=== PATIENT | male | born 1945 | race Caucasian/White ===

== ENCOUNTER 2018-10-27 02:19 | Outpatient (CLI) | payer MEDICARE, BC, SELFPAY ==
[2018-10-27 11:33] LABS: Cholesterol 223 mg/dL (50-200); HDL Cholesterol 37 mg/dL (40-60); LDL CHOLESTEROL 151 mg/dL (<100); Triglyceride 190 mg/dL (30-150)
== END 2018-10-27 02:39 ==
PROVIDERS: PCP Emergency Medicine; Visit Provider Emergency Medicine
DX: I10 Essential (primary) hypertension (principal)
CPT/HCPCS: 36415; 80061; 83721

== ENCOUNTER 2020-04-13 14:35 | Emergency (ER) | payer MEDICARE, BC, SELFPAY ==
[2020-04-13 14:39] VITALS: BP 175/82; PULSE 73; RESP 15; TEMP 37; O2SAT 96
--- NOTE | 2020-04-13 15:22 | ED.GENADUL_ITS ---
Discharge Plan Disposition Patient Disposition: HOME Condition: Stable Discharge Details Chief Complaint: Laceration Clinical Impression: Avulsion of skin of finger Primary Care Provider: Kenneth Houser ED Provider: Isabelle Guerrero Home Meds and New Rx's Prescriptions: Continued losartan-hydrochlorothiazide 100-25 mg tablet 1 tab PO DAILY Qty: 90 RF: 3 carbamide peroxide 6.5 % drops 5 drp OT BID Qty: 30 RF: 0 aspirin [Aspir-81] 81 MG tablet,delayed release (DR/EC) 81 mg PO DAILY RF: 0 meclizine 25 MG tablet 25 mg PO qid prn 30 Days Qty: 120 RF: 1 Flovent HFA 110 mcg/actuation HFA aerosol inhaler 220 mcg Inhalation BID Qty: 2 RF: 6 levalbuterol tartrate 45 mcg/actuation HFA aerosol inhaler 2 puff Inhalation Q4H PRN Qty: 2 RF: 12 Discharge Instructions Instructions: Skin Avulsion (ED) Additional Instructions: Keep wound clean and dry. Do not remove the Gelfoam. Let it fall off naturally. If outer dressing becomes wet or dirty, you can be covered Gelfoam with bandage or Band-Aid. Follow-up with your primary care doctor in 1 week. Return to the emergency department with any worsening or new concerning symptoms. Discharge Data Discharge Date/Time-TO BE ENTERED AT DEPARTURE: 04/13/20 15:32 Discharge Physician: Isabelle Guerrero Medical Decision Making 74-year-old male with a history of a 1 x 1 cm skin avulsion noted to the second right medial distal finger tip after cut with brand-new X-Acto knife just prior to arrival. Tetanus up-to-date. No indication for any repair as there is only skin avulsion. Wound irrigated well. Wound covered with Gelfoam and tube gauze. Patient instructed on proper wound care. Advised to follow up with the primary care doctor for re-evaluation. Usual and customary return precautions given prior to discharge. Medical Records Medical records reviewed: Yes I reviewed the patient's medical records. HPI General Mode of arrival: ambulatory . Date/Time Provider Initiated Documentation: 04/13/20 14:37 . Limitations to Documentation: no limitations . Information obtained by: patient . HPI Narrative: Patient is a 74-year-old male who presents with right second finger laceration sustained when cut with a brand-new X-Acto knife that he opened from the packaging. Tetanus up-to-date. Denies any other injuries. Related Data Home Medications Medication Instructions Recorded Confirmed aspirin [Aspir-81] 81 mg PO DAILY tab-cap 06/04/13 04/13/20 meclizine 25 mg PO qid prn 30 Days #120 06/12/18 04/13/20 tab-cap fluticasone propionate 110 220 mcg INHALATION BID #2 inhaler 01/01/20 04/13/20 mcg/actuation HFA aerosol inhaler levalbuterol tartrate 45 2 puff INHALATION Q4H PRN #2 01/01/20 04/13/20 mcg/actuation aerosol inhaler inhaler losartan 100 1 tab PO DAILY #90 tab-cap 04/01/20 04/13/20 mg-hydrochlorothiazide 25 mg tablet carbamide peroxide 6.5 % ear drops 5 drp OT BID #30 ml 04/04/20 04/13/20 Previous Rx's Medication Instructions Recorded meclizine 25 mg PO qid prn 30 Days #120 06/12/18 tab-cap fluticasone propionate 110 220 mcg INHALATION BID #2 inhaler 01/01/20 mcg/actuation HFA aerosol inhaler levalbuterol tartrate 45 2 puff INHALATION Q4H PRN #2 01/01/20 mcg/actuation aerosol inhaler inhaler losartan 100 1 tab PO DAILY #90 tab-cap 04/01/20 mg-hydrochlorothiazide 25 mg tablet carbamide peroxide 6.5 % ear drops 5 drp OT BID #30 ml 04/04/20 Allergies Allergy/AdvReac Type Severity Reaction Status Date / Time amlodipine AdvReac Intermediate palpitation Verified 04/13/20 14:42 s budesonide [From Symbicort] AdvReac Intermediate anxiety Verified 04/13/20 14:42 hypertension doxazosin AdvReac Intermediate tachycardia Verified 04/13/20 14:42 formoterol fumarate AdvReac Intermediate anxiety Verified 04/13/20 14:42 [From Symbicort] hypertension ANIMAL DANDER Allergy Unknown Uncoded 04/13/20 14:42 DUST Allergy Unknown Uncoded 04/13/20 14:42 POLLEN EXTRACTS Allergy Unknown Uncoded 04/13/20 14:42 General Stated Complaint: Laceration JAYE: 4 Review of Systems All systems reviewed & are unremarkable except as noted in HPI and below PFSH Social History Smoking/Tobacco Use Status: Never Alcohol Intake: former Drug use: Never Substance use type: does not use Do you feel safe at home: Yes Do you feel safe in your relationship?: Yes Exam Const General: cooperative, healthy appearing and no acute distress HENMT Head: normal to inspection Mouth: oral mucosae normal Eyes General: appearance normal, both eyes and all related structures Neck Neck: normal visual inspection Resp Effort & Inspection: normal respiratory effort and able to speak in complete sentences Cardio Rate: regular rate Skin General skin exam: no rashes or lesions noted Neuro General: patient alert, patient awake and patient oriented x3 Motor: muscle tone normal throughout Extrem Hand/finger images: 1. 1x1cm skin avulsion noted to distal medial fingertip. Minimal active oozing controlled with pressure. Psych Appearance: grossly normal Affect: normal affect Course Vital Signs Vital signs: Vital Signs Temperature 98.6 F 04/13/20 14:39 Pulse 73 04/13/20 14:39 Respiratory Rate 15 04/13/20 14:39 Blood Pressure 175/82 H 04/13/20 14:39 Pulse Oximetry 96 04/13/20 14:39 Temperature 98.6 F 04/13/20 14:39 Temperature Source Temporal Artery Scan 04/13/20 14:39 Pulse 73 04/13/20 14:39 Respiratory Rate 15 04/13/20 14:39 Respiratory Effort Non-Labored 04/13/20 14:41 Blood Pressure 175/82 H 04/13/20 14:39 Blood Pressure Position Sitting 04/13/20 14:39 Pulse Oximetry 96 04/13/20 14:39 Oxygen Delivery Method Room Air 04/13/20 14:39 Oxygen Flow Rate 0 04/13/20 14:39 Pain Level 2 04/13/20 14:39
[2020-04-13 15:30] VITALS: BP 175/82; PULSE 73; RESP 15; TEMP 37; O2SAT 96
[2020-04-13] MEDS: Gelatin SPONGE 12-7 MM PKT 1 EACH TP (15:30)
== END 2020-04-13 15:32 | disposition home or self-care (01) ==
LOC: ER 15:31
PROVIDERS: Emergency Provider Physician Assistant; PCP Emergency Medicine
DX: S61.210A Laceration without foreign body of right index finger without damage to nail, initial encounter (principal); W26.0XXA Contact with knife, initial encounter
CPT/HCPCS: 99282

== ENCOUNTER 2022-05-05 02:36 | Outpatient (CLI) | payer MEDICARE, BC, SELFPAY ==
[2022-05-05 11:23] LABS: ALT 31 U/L (16-63); AST 23 U/L (15-37); Albumin 4.2 g/dL (3.4-5.0); Alkaline Phosphatase 76 U/L (46-116); Anion Gap 8.8 mmol/L (3-11); BUN 23 mg/dL (7-18); CO2 29.2 mmol/L (21.0-32.0); CREATININE 1.4 mg/dL (0.70-1.30); Calcium 9.1 mg/dL (8.5-10.1); Calculated LDL 171 mg/dL (<100); Chloride 101 mmol/L (98-107); Cholesterol 243 mg/dL (<200); Estimated GFR 49.54 (mL/min/1.73m2); Glucose 93 mg/dL (74-106); HDL Cholesterol 40 mg/dL (40-60); Potassium 4.4 mmol/L (3.5-5.1); Sodium 139 mmol/L (136-145); Total Protein 7.8 g/dL (6.4-8.2); Triglyceride 162 mg/dL (<150)
== END 2022-05-05 02:37 | disposition home or self-care (01) ==
LOC: LBO 02:37
PROVIDERS: PCP Nurse Practitioner Family; Visit Provider Nurse Practitioner Family
DX: I10 Essential (primary) hypertension (principal)
CPT/HCPCS: 36415; 80053; 80061

== ENCOUNTER 2022-10-26 04:01 | Outpatient (CLI) | payer MEDICARE, BC, SELFPAY ==
[2022-10-26 13:03] LABS: CREATININE 1.4 mg/dL (0.70-1.30); Estimated GFR 52.41 (mL/min/1.73m2); Potassium 4.7 mmol/L (3.5-5.1)
== END 2022-10-26 04:02 | disposition home or self-care (01) ==
LOC: LOS 04:01
PROVIDERS: PCP Nurse Practitioner Family; Visit Provider Nurse Practitioner Family
DX: I10 Essential (primary) hypertension (principal)
CPT/HCPCS: 36415; 82565; 84132

== ENCOUNTER → 2023-09-01 08:06 | Outpatient (BNVA) | payer MEDICARE, BC, SELFPAY | PROVIDERS: PCP Nurse Practitioner Family; Referring Provider Nurse Practitioner Family; Visit Provider Physician Assistant Surgical | DX: J45.20 Mild intermittent asthma, uncomplicated (principal); I10 Essential (primary) hypertension | CPT/HCPCS: 99205 ==

== ENCOUNTER → 2023-12-01 08:48 | Outpatient (BNVA) | payer MEDICARE, BC, SELFPAY | PROVIDERS: PCP Nurse Practitioner Family; Referring Provider Nurse Practitioner Family; Visit Provider Student in an Organized Health Care Education/Training Program | DX: J45.20 Mild intermittent asthma, uncomplicated (principal) | CPT/HCPCS: 99214 ==

== ENCOUNTER 2023-12-13 03:26 | Outpatient (CLI) | payer MEDICARE, BC, SELFPAY ==
[2023-12-13 12:55] LABS: CREATININE 1.5 mg/dL (0.70-1.30); Calculated LDL 131 mg/dL (<100); Cholesterol 203 mg/dL (<200); Estimated GFR 47.95 (mL/min/1.73m2); HDL Cholesterol 37 mg/dL (40-60); Potassium 3.7 mmol/L (3.5-5.1); Triglyceride 178 mg/dL (<150)
== END 2023-12-13 03:27 | disposition home or self-care (01) ==
LOC: LOS 03:26
PROVIDERS: PCP Nurse Practitioner Family; Visit Provider Nurse Practitioner Family
DX: I10 Essential (primary) hypertension (principal); Z13.6 Encounter for screening for cardiovascular disorders
CPT/HCPCS: 36415; 80061; 82565; 84132

== ENCOUNTER 2023-12-20 04:41 | Outpatient (CLI) | payer MEDICARE, BC, SELFPAY ==
[2023-12-20] MEDS: Methacholine 100 MG VIAL IH (11:58)
[2023-12-20] MEDS: Albuterol HFA 18 GM 200 PUFF INH IH (11:58)
[2023-12-20] MEDS: Inhaler, Assist Device 1 EACH MC (11:59)
--- NOTE | 2023-12-22 14:16 | W.PFT ---
Date of service: 12/20/23 Time of Service: 10:01 Pulmonary Function Test Result Indications: Dyspnea Interpretation Spirometry: There is no airflow limitation. No bronchodilator response. Lung Volumes: There is air trapping and hyperinflation Diffusion Capacity: Normal diffusion Airway Pressure: Normal airways resistance Impression There is air trapping present which may be indicative of asthma or emphysema Clinical Correlation therefore is recommended.
== END 2023-12-20 04:42 | disposition home or self-care (01) ==
LOC: RT 04:41
PROVIDERS: PCP Nurse Practitioner Family; Visit Provider Physician Assistant Surgical
DX: R06.00 Dyspnea, unspecified (principal); R94.2 Abnormal results of pulmonary function studies
CPT/HCPCS: 94060; 94070; 94726; 94729; 94010; J7674

== ENCOUNTER → 2024-06-05 08:17 | Outpatient (BNVA) | payer MEDICARE, BC, SELFPAY | PROVIDERS: PCP Nurse Practitioner Family; Referring Provider Nurse Practitioner Family; Visit Provider Internal Medicine Critical Care Medicine | DX: J45.20 Mild intermittent asthma, uncomplicated (principal) | CPT/HCPCS: 99214 ==

== ENCOUNTER → 2024-09-04 09:33 | Outpatient (BNVA) | payer MEDICARE, BC, SELFPAY | PROVIDERS: PCP Nurse Practitioner Family; Referring Provider Nurse Practitioner Family; Visit Provider Physician Assistant Surgical | DX: J45.20 Mild intermittent asthma, uncomplicated (principal) | CPT/HCPCS: 99214 ==

== ENCOUNTER 2024-12-06 00:39 | Emergency (ER) | payer MEDICARE, BC, SELFPAY ==
[2024-12-06] VITALS (28 sets, daily range): BP systolic 170–258; BP diastolic 82–99; PULSE 52–64; RESP 8–19; TEMP 36; O2SAT 96–100
--- NOTE | 2024-12-06 00:30 | RT.EKG_ITS ---
APPROVED REPORT Exam: Resting ECG Reason for Exam: high bp Patient Location: E HR:57 bpm ECG Measurements Heart Rate 57 AXIS OH 210 P 48 QRSd 93 QRS -5 QT 401 T 45 QTc 390 Conclusion Sinus bradycardia...rate< 60 Normal [place]/Intervals Normal ST segments.
--- NOTE | 2024-12-06 00:43 | ED.GENADUL_ITS ---
Discharge Plan Disposition Patient Disposition: Home Condition: Good Discharge Details Clinical Impression: Nausea, Elevated blood pressure reading with diagnosis of hypertension Primary Care Provider: Pablito Fragoso ED Provider: Willy Williamson [place] Meds and New Rx's Prescriptions: Continued levalbuterol tartrate 45 mcg/actuation HFA aerosol inhaler 2 puff Inhalation Q4H PRN Qty: 2 3RF losartan 100 mg tablet 100 mg PO DAILY Qty: 90 3RF hydrochlorothiazide 25 mg tablet 25 mg PO DAILY metoprolol succinate 25 mg tablet extended release 24 hr 25 mg PO DAILY No Action Airsupra 90-80 mcg/actuation HFA aerosol inhaler 2 inh inhalation ONCE Qty: 10.7 12RF Rx Instructions: as a single dose; may repeat up to 6 doses per day (12 inhalations) Discharge Instructions Additional Instructions: You were seen for nausea and elevated blood pressure. Your exam, EKG, CXR and labs are reassuring. Your blood pressure did come down but is still high. You should discuss both blood pressure medications as well as asthma maintenance inhalers with your PCP today at your appointment. Return to ED for any severe headache, neurological change, chest pain, shortness of breath or other concerns. Referrals: Pablito Fragoso, MACHINE [employer]CH[employer]IC [Primary Care Provider] - HPI General Mode of arrival: ambulatory . Date/Time Provider Initiated Documentation: 12/06/24 00:43 . Limitations to Documentation: no limitations . Information obtained by: patient, RN notes reviewed and old records reviewed . HPI Narrative: Patient presents to ED after waking up feeling nauseated and anxious. Denies having any type of pain. Denies any type of chest discomfort. Has been needing to use his rescue inhaler at least once a day over the last few days but denies fever or URI type symptoms. Had seen his primary care at the end of the month in October. His maintenance inhaler was placed on hold due to concern that the budesonide may be causing increased blood pressure. Blood pressure tonight after waking up was quite elevated. Denies any acute neurologic change, shortness of breath. Currently on hydrochlorothiazide, losartan and metoprolol for blood pressure. Related Data Home Medications ?Medication ?Instructions ?Recorded ?Confirmed losartan 100 mg tablet 100 mg PO DAILY #90 tabs 12/16/23 12/06/24 levalbuterol tartrate 45 2 puff inhalation Q4H PRN ##2 08/06/24 02/06/25 mcg/actuation aerosol inhaler albuterol 90 mcg-budesonide 80 2 inh inhalation ONCE #10.7 grams 10/03/24 12/06/24 mcg/actuation HFA aerosol inhaler (Airsupra) hydrochlorothiazide 25 mg tablet 25 mg PO DAILY 12/06/24 12/06/24 metoprolol succinate 25 mg 25 mg PO DAILY 12/06/24 12/06/24 tablet,extended release 24 hr Previous Rx's ?Medication ?Instructions ?Recorded losartan 100 mg tablet 100 mg PO DAILY #90 tabs 12/16/23 levalbuterol tartrate 45 2 puff inhalation Q4H PRN ##2 06/05/24 mcg/actuation aerosol inhaler albuterol 90 mcg-budesonide 80 2 inh inhalation ONCE #10.7 grams 10/03/24 mcg/actuation HFA aerosol inhaler (Airsupra) Allergies Allergy/AdvReac Type Severity Reaction Status Date / Time budesonide (From Symbicort) Allergy Intermediate anxiety Verified 12/06/24 00:52 hypertension doxazosin Allergy Intermediate tachycardia Verified 12/06/24 00:52 formoterol fumarate (From AdvReac Intermediate anxiety Verified 12/06/24 00:52 Symbicort) hypertension ANIMAL DANDER Allergy Unknown chest Uncoded 12/06/24 00:52 tightness DUST Allergy Unknown chest Uncoded 12/06/24 00:52 tightness maple trees Allergy Unknown chest Uncoded 12/06/24 00:52 tightness POLLEN EXTRACTS Allergy Unknown chest Uncoded 12/06/24 00:52 tightness amlodipine AdvReac Intermediate heart Uncoded 12/06/24 00:52 pounding General JAYE: 4 Review of Systems Narrative: Per HPI Exam Narrative Exam Narrative: Const: WDWN male in NAD. VS per triage. HEENT: NC/AT. Normal facial exam. Neck: Supple. Trachea midline. Lungs: Normal respiratory effort. Lungs are clear. Cor: RRR without murmur. Good radial pulses. GI: Soft/ND/NT. Neuro: A+O x 3. Normal speech, mentation, gait. Cranial nerves II - XII grossly intact. No gross motor or sensory deficit. Ext: No C/C/E. Medical Decision Making Patient presenting to ED with elevated blood pressure after waking up with nausea and anxiety. EKG obtained on arrival is sinus bradycardia with normal ST segments, interval, axis. Blood pressure is quite elevated but he is exhibiting no evidence of hypertensive urgency or emergency. No URI type symptoms but increase use of his rescue inhaler. May be related to discontinuing his maintenance inhaler but will obtain chest x-ray. No recent laboratory studies and no chest pain or pressure but is elderly and has nausea with some anxiety. Reasonable to check a set of labs as well as delta troponin and monitor blood pressure while here. Blood pressure did come down though still elevated, last reading 173/97. He is feeling better with no nausea and no new symptoms. Chest x-ray per my read with no acute cardiopulmonary process. Laboratory studies with no significant abnormalities. Delta troponin is flat. Patient has his annual wellness visit with PCP for today. I have suggested that he discuss both blood pressure control and potential changes in medications as well as finding an asthma maintenance inhaler so that he is not relying upon his rescue inhaler. Questions were answered. Return precautions were provided. Discharged home in good condition. Medical Records Medical records reviewed: Yes I reviewed the patient's medical records. Medical records narrative: PCP notes Imaging Data Radiologic Study: Attestation: I personally reviewed and interpreted this imaging study as follows: Imaging: X-Ray My impression: CXR without acute process Lab Data Lab results reviewed: Yes I reviewed the patient's lab results. Lab results narrative: see MDM ECG Data Attestation: I personally reviewed and interpreted this ECG (s) as follows: Prior ECG tracings: not available for review Interpretation: see MDM/EKG [facility] All Active Problems (Updated 12/06/24 @ 03:10 by Willy Williamson MD) Elevated blood pressure reading with diagnosis of hypertension (Acute) Nausea (Acute) Sensorineural hearing loss (Acute) Bilateral tinnitus (Acute) Benign paroxysmal positional vertigo (Acute 06/07/18) Medical History Asthma Essential hypertension (12/11/13) Hyperlipidemia Stage III chronic kidney disease Surgical History History of nephrectomy, 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 Family History Mother Diabetes Essential hypertension Heart disease Hyperlipidemia Father Essential hypertension Asbestos exposure Brother Essential hypertension Personal history of malignant neoplasm Skin Grandfather Heart disease Stroke Grandfather No problems noted. Grandmother No problems noted. Grandmother No problems noted. Brother Essential hypertension Hyperlipidemia Brother No problems noted. Brother Diabetes Essential hypertension Son No problems noted. Son No problems noted. Son No problems noted. Daughter No problems noted. Daughter Asthma Social History Smoking/Tobacco Use Status: Former Tobacco Use tobacco type: smokeless tobacco Tobacco: How many years used: 50 Smokeless tobacco user: chewing tobacco Second Hand Exposure: Yes Smoking risk assessment performed?: Yes Alcohol Intake: former Drug use: Never Substance use type: does not use Caregiver/Support person: No Household members: spouse Housing: house Pets and animals: Yes Pets and animals: cat(s) and dog(s) Sexually active: Yes Do you think of yourself as: straight/heterosexual Current gender identity: male What is your relationship status?: How often do you talk on the phone with friends or family?: once per week How often do you get together with friends or relatives?: once per week How often do you attend gnosticism or muslim services?: decline to answer Do you belong to any clubs or organized social groups?: no Panel score (0-1 are the most socially isolated patients): 1 Desirae/Jain: No preference Special desirae needs: No Seatbelt use: sometimes Drive intox or ride w/intox 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
--- OUTSIDE RECORDS SUMMARY | 2024-12-06 00:44 | XMS_ITS | Encounter Summary ---
Author Organization [facility] [place] [address] Care Team Providers Care Powerbuilder Name Role Phone MikKenneth martin Primary Care Provider Reason for Visit * Reason Comments Post Op Encounter Details Date Type Department Care Team (Late st Contact Info) Description 06/24/2020 12:30 PM EDT Office [place] [address] Gabriel Anderson MD Epiretinal membrane (ERM) of left eye s/p PPV-MP 06/16/20 Social History Tobacco Use Types Packs/Day Years Used Date Smoking Tobacco: Never Smokeless Tobacco: Former Chew Alcohol Use Standard Drinks/Week Comments Not Currently 0 (1 standard drink = 0.6 oz pur e alcohol) Sex and Gender Information Value Date Recorded Sex Assigned at Not on file Gender Identity Not on file Sexual Orientation Not on file documented as of this encounter Patient Instructions * Patient Instructions* Gabriel Anderson MD - 06/24/2020 12:30 PM EDT Images from the original note were not included. Drop Name: Cap Color: Dose: 1 Drop Eye: Prednisolone Acetate 1% [place] or White 2 times per day Until bottle empties (shake bottle before using) Operated eye Vigamox (Moxifloxacin) Hernandez STOP Operated eye Ointment Small tube 2-3x daily as needed Operated eye Make sure to wait 3-5 minutes between eye drops. POSITIONING: No special positioning WARNING SYMPTOMS People frequently feel mild-moderate discomfort that improves within a few days. Eyelid edema and redness are also common. However, if you feel new pain, light sensitivity and vision loss please call the [facility] telephone center ([phone]) immediately and speak to the insurance agency sales manager superintendent of generation. PAIN May use over the counter pain medications as needed (Tylenol 1000mg- up to 3 times daily) alternating with ibuprofen (600mg up to 3 times per day) EYE SHIELD: Not needed OTHERS Make sure you wash your hands prior to touching your eye (i.e. Prior to applying your eyedrops) Avoid lifting very heavy weights for 1 month (i.e. Not more than 20 lbs) FLIGHTS: No restrictions documented in this encounter Progress Notes * Gabriel Anderson MD - 06/24/2020 12:30 PM EDT ASSESSMENT/PLAN: Visual Acuity Visual Acuity (Snellen - Linear) Right Left Dist cc 20/25 -2 20/40 +2 Dist ph cc NI Near cc 20/20 20/200 Correction: Glasses Tonometry Tonometry (Tonopen, 1:13 PM) Right Left Pressure 14 19 1. Epiretinal membrane (ERM) of left eye s/p PPV-MP 06/16/20 POW1. Doing well. The IOP is good, the retina attached.The warning symptoms of RD were discussed. Eye drops: PF BID until the bottle empties. Stop Vigamox Follow up in 5-6 weeks HCK for DFE, OCT OU Gabriel Anderson MD documented in this encounter Plan of Treatment Not on file documented as of this encounter Visit Diagnoses Diagnosis Epiretinal membrane (ERM) of left eye s/p PPV-MP 06/16/20 documented in this encounter Care Teams Powerbuilder Relationship Specialty Start Date End Date Kenneth Houser DO [address] [place] [address] PCP - General Family Medicine 04/14/17 documented as of this encounter
--- OUTSIDE RECORDS SUMMARY | 2024-12-06 00:44 | XMS_ITS | Encounter Summary ---
[place] [address] Care Team Providers Care Client Care Coordinator Name Role Phone Mik, Kenneth SMITH Primary Care Provider [phone] Reason for Visit * Auth/Cert Specialty Diagnoses / Procedures Referred By Isis au Referred To Contact Diagnoses epiretinal membrane, left eye Procedures PRO VITRECTOMY PARS PLANA REMOVE PRERETINAL MEMBRANE VITRECTOMY, W/ MEMBRANE STRIPPING (WRVU 16.33) Referral ID Status Reason Start Date Expiration Date Visits Re quested Visits Authorized [id number] 1 1 Encounter Details Date Type Department Care Team (Latest Contact Info) Description 06/16/2020 8:27 AM EDT - 06/16/2020 11:48 AM EDT Hospital Encounter [place] [address] Gabriel Anderson MD Discharge Disposition: Home Social History Tobacco Use Types Packs/Day Years Used Date Smoking Tobacco: Never Smokeless Tobacco: Former Chew Alcohol Use Standard Drinks/Week Comments Not Currently 0 (1 standard drink = 0.6 oz pur e alcohol) Sex and Gender Information Value Date Recorded Sex Assigned at Not on file Gender Identity Not on file Sexual Orientation Not on file documented as of this encounter Last Filed Vital Signs Vital Sign Reading Time Taken Comments Blood Pressure 126/60 06/16/2020 11:30 AM EDT Pulse 70 06/16/2020 8:52 AM EDT Temperature 36.5 ??C (97.7 ??F) 06/16/2020 10:58 AM E DT Respiratory Rate 16 06/16/2020 11:30 AM EDT Oxygen Saturation 97% 06/16/2020 11:30 AM EDT Inhaled Oxygen Concentration - - Weight 76.2 kg (168 lb) 06/16/2020 8:52 AM EDT Height 172.7 cm (5' 8) 06/16/2020 8:52 AM EDT Body Mass Index 25.54 06/16/2020 8:52 AM EDT documented in this encounter Discharge Instructions * Patient Instructions* Gabriel Anderson MD - 06/16/2020 9:22 AM EDT DROPS: Operated eye: Please keep the patch on the operated eye and do NOT use any eye drops. You will start them right after your post-op day 1 exam. Non- operated eye: Please continue all the eye drops (if any) as previously instructed POSITIONING: Please keep a face down position for ~50-55 mins/hour while awake. It's ok to take a ~5- 10 minute break every hour. Please sleep on your side with the left or right cheek touching the pillow WARNING SYMPTOMS People frequently feel mild-moderate discomfort that improves within a few days. Eyelid edema and redness are also common for a few weeks. However, if you feel new pain, tenderness, light sensitivity and vision loss please call the [facility] telephone center ([phone]) immediately and speak to the regulatory compliance specialist secondary school teacher. PAIN May use over the counter pain medications as needed (Tylenol 1000mg- up to 3 times daily) alternating with ibuprofen (600mg up to 3 times per day) EYE SHIELD: Keep eye shield on the eye overnight. OTHERS Avoid lifting heavy weights for 1 week (i.e. Not more than 5-10 lbs) Avoid high impact activities (e.g. Weight lifting, running) for at least 1 week Avoid straining- valsalva, retching, vomiting, coughing as much as possible FLIGHTS: Do NOT take any flights until you discuss it with your doctor. There's severe risk for the eye if you're in areas of high altitude (flight, very tall mountains etc) documented in this encounter Medications at Time of Discharge Medication Sig Dispensed Refills Start Date End Date ketoconazole (NIZORAL) 2 % ShampooIndications:Seborr heic dermatitis Apply to affected area on the face daily as needed, wash off after 5-10 minutes 120 mL 3 11/22/2017 FLOVENT HFA 110 mcg/actuation HFA Aerosol Inhaler 04/27/2017 levalbuterol (XOPENEX HFA) 45 mcg/actuation HFA Aerosol Inhaler 04/27/2017 aspirin 81 mg Tablet, Delayed Release (E.C.) Take 81 mg by mouth daily. losartan-hydrochlorothiaz lex (HYZAAR) 100-25 mg per tablet 12/21/2006 documented as of this encounter Progress Notes * Meghann Tran RN - 06/16/2020 11:47 AM EDT Patient alert and oriented, vital signs stable. Reviewed discharge instructions; patient and verbalized understanding. Copy of instruction sheet with contact numbers for questions/concerns. Painassessment documented. Patient escorted out of department via wheelchair with MILK RECEIVER. documented in this encounter H&P Notes * Gabriel Anderson MD - 06/16/2020 9:21 AM EDT Patient Name: Everett Johnson Patient Age: 75 y.o. Birthdate: 1945 Admit date: 06/16/2020 Attending Physician: Gabriel Anderson MD History and Physical Reviewed. No changes noted. The heart exam: RR, lung exam CTAB Ok to proceed with eye surgery as planned. Gabriel Anderson MD, PhD Physical Education Teacher of Ophthalmology Diseases of the Retina and Vitreous documented in this encounter Nursing Notes * Matilde Ward RN - 06/16/2020 10:46 AM EDT 20% SF6 gas left eye Card in black bag Gas bracelet applied to wrist documented in this encounter Miscellaneous Notes * Op Note - Gabriel Anderson MD - 06/16/2020 9:22 AM EDT [facility] [place] Patient Name: Everett Johnson : [id number] MR#: [id number] Case Date: 06/16/2020 Surgeon: Surgeon(s) and Role: * Gabriel Anderson MD - Primary Preoperative diagnosis: Epiretinal membrane, left eye Postoperative diagnosis: Epiretinal membrane, left eye Procedure(s) (LRB): VITRECTOMY, W/ MEMBRANE STRIPPING (WRVU 16.33) (Left) Anesthesia: MAC Estimated Blood Loss: <1ml Specimens removed during surgery: None Drains: * No LDAs found * Surgical Closure: Primary Closure - skin incision is completely closed without any wires, gladys, drains or other devices Disposition: aroused from sedation, and taken to the recovery room in a stable condition Condition: doing well without problems (Please see the Surgical Encounter Summary for any Implant and Specimen details pertinent to this patient.) HPI/Surgical Indications: Epiretinal membrane, left eye Procedure Description: Everett Johnson is a 75 y.o. male with blurred vision and metamorphopsia in the left eye due to severe epiretinal membrane and a decision was made to proceed with vitrectomy to improve the quality of the vision. The patient was brought [place] [facility] [place] a time-out was done to confirm correct eye, correct patient, and correct procedure.The patient was sedated and peribulbar anesthesia was given using 50:50 of 4% lidocaine and 0.75% marcaine. The appropriate eye was prepped and draped in the normal sterile fashion for intraocular surgery and a wire lid speculum was used throughout the case to retract the eyelids. Using the Mauro 25-gauge vitrectomy system, trocars were placed in the inferotemporal, superotemporal and superonasal quadrants approximately 4mm from the limbus. An infusion cannula was placed in the inferotemporal quadrant and its position was confirmed by direct visualization with the light pipebefore it was turned on. 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 Moreover the epiretinalmembrane was severe and was causing tractional retinal detachment. A 360 core vitrectomy was performed, the posterior vitreous was already detached and the vitreous was shaved out to the base as safely as possible. The epiretinal membrane was stained negatively withICG. Fluid- fluid exchange was performed to remove the ICG from the vitreous cavity. The epiretinalmembrane as well as parts of the inner limiting membrane were removed using ILM forceps. Attention was placed to the periphery and scleral depressed exam did not reveal any retinal breaks. Given the traction on the macula a decision was made to use SF6 20% in order to expedite the recovery. Each of the trocars was removed sequentially, the sclerotomies were closed with 8-0 vicryl suture and the eye was left adequately pressurized, air and watertight. Subconjunctival injection of cefazolin (100mg/0.3ml) and dexamethasone (2mg/0.5ml) as well as a peribulbar injection of marcaine 0.75% we re given. A drop of vigamox and antibiotic ointment were placed in the eye followed by a patch and shield. The patient was awoken from sedation, positioned appropriately and brought to the recovery room in stable condition.They have follow up in the retina clinic in 1 day. Infection Bundle used? No Attestation: Case Date: 06/16/2020 I performed this procedure without the involvement of a resident. Gabriel Anderson MD 06/17/2020 documented in this encounter Plan of Treatment Not on file documented as of this encounter Procedures Procedure Name Priority Date/Time Associated Diagnosis Comments Vitrectomy Pars Plana Remove Preretinal Membrane (70906) 06/16/2020 9:39 AM EDT Epiretinal membrane (ERM) of left eye documented in this encounter Visit Diagnoses Not on filedocumented in this encounter Administered Medications Inactive Administered Medications - up to 3 most recent administrations Medication Order MAR Action Action Date Dose Rate Site acetaminophen (Tylenol) tablet 1,000 mg 1,000 mg, Oral, EVERY 6 HOURS PRN, Starting on Tue06/16/20 at 1100, Until Tue06/16/20 at 1348, Pain, for MODERATE pain (4-6), Should be used concomitantly if other analgesics are ordered. Do not exceed 4,000 mg in 24 hours, Routine Given 06/16/2020 11:38 AM EDT 1,000 mg atropine 1 % ophthalmic solution 1 drop 1 drop, Left Eye, EVERY 5 MIN, 3 doses, First dose on Tue06/16/20 at 0915, Last dose on Tue06/16/20 at 0925, Day of Surgery (Day of Procedure), Routine Given 06/16/2020 9:26 AM EDT 1 drop Given 06/16/2020 9:16 AM EDT 1 drop Given 06/16/2020 9:05 AM EDT 1 drop Le ft Eye lactated ringers infusion 1,000 mL, at 100 mL/hr, Intravenous, CONTINUOUS, Starting on Tue06/16/20 at 0915, Until Tue06/16/20 at 1146, Day of Surgery (Day of Procedure) New Bag 06/16/2020 9:17 AM EDT 1,000 mLs 100 mL/hr moxifloxacin (VIGAMOX) 0.5 % ophthalmic solution 1 drop 1 drop, Left Eye, EVERY 5 MIN, 3 doses, First dose on Tue06/16/20 at 0915, Last dose on Tue06/16/20 at 0925, Day of Surgery (Day of Procedure), Routine Given 06/16/2020 9:27 AM EDT 1 drop Given 06/16/2020 9:16 AM EDT 1 drop Given 06/16/2020 9:05 AM EDT 1 drop PHENYLephrine (MYDFRIN) 2.5 % ophthalmic solution 1 drop 1 drop, Left Eye, EVERY 5 MIN, 3 doses, First dose on Tue06/16/20 at 0915, Last dose on Tue06/16/20 at 0925, Day of Surgery (Day of Procedure), Routine Given 06/16/2020 9:27 AM EDT 1 drop Given 06/16/2020 9:16 AM EDT 1 drop Given 06/16/2020 9:05 AM EDT 1 drop prednisoLONE acetate (PRED FORTE) 1 % ophthalmic suspension 1 drop 1 drop, Left Eye, ONCE, 1 dose, On Tue06/16/20 at 0915, Day of Surgery (Day of Procedure), Routine Given 06/16/2020 9:05 AM EDT 1 drop documented in this encounter Active and Recently Administered Medications Times are shown in EDT. Scheduled Medication Order 06/14/2020 06/15/2020 06/16/2020 atropine 1 % ophthalmic solution 1 drop (COMPLETED) 1 drop, Left Eye, EVERY 5 MIN, 3 doses, First dose on Tue06/16/20 at 0915, Last dose on Tue06/16/20 at 0925, Day of Surgery (Day of Procedure), Routine 09 (Given - Provid er: Shoshana Molina RN)0916 (Given - Provider: Shoshana Molina RN)09 (Not Given - Provider: Shoshana Molina RN - Reason: See comment - Comment: not given-see three other doses)0926 (Given - Provider: Shoshana Molina RN) moxifloxacin (VIGAMOX) 0.5 % ophthalmic solution 1 drop (COMPLETED) 1 drop, Left Eye, EVERY 5 MIN, 3 doses, First dose on Tue06/16/20 at 0915, Last dose on Tue06/16/20 at 0925, Day of Surgery (Day of Procedure), Routine 904 (Given - Provid er: Shoshana Molina RN)0916 (Given - Provider: Shoshana Molina RN)09 (Not Given - Provider: Shoshana Molina RN - Reason: See comment - Comment: not given-please see three other doses)09 (Given - Provider: Shoshana Molina RN) PHENYLephrine (MYDFRIN) 2.5 % ophthalmic solution 1 drop (COMPLETED) 1 drop, Left Eye, EVERY 5 MIN, 3 doses, First dose on Tue06/16/20 at 0915, Last dose on Tue06/16/20 at 0925, Day of Surgery (Day of Procedure), Routine 09 (Given - Provid er: Shoshana Molina RN)0916 (Given - Provider: Shoshana Molina RN)0920 (Due)09 (Given - Provider: Shoshana Molina RN) prednisoLONE acetate (PRED FORTE) 1 % ophthalmic suspension 1 drop (COMPLETED) 1 drop, Left Eye, ONCE, 1 dose, On Tue06/16/20 at 0915, Day of Surgery (Day of Procedure), Routine 904 (Given - Provid er: Shoshana Molina RN) Continuous Medication Order 06/14/2020 06/15/202006/1606/16/2020 lactated ringers infusion (CANCELED) 1,000 mL, at 100 mL/hr, Intravenous, CONTINUOUS, Starting on Tue06/16/20 at 0915, Until Tue06/16/20 at 1146, Day of Surgery (Day of Procedure) 0917 (New Bag - Prov ider: Shoshana Molina RN)1052 (Anesthesia Volume Adjustment - Provider: Isabella Valdovinos CRNA) PRN Medication Order 06/14/2020 06/15/2020 06/16/2020 acetaminophen (Tylenol) tablet 1,000 mg 1,000 mg, Oral, EVERY 6 HOURS PRN, Starting on Tue06/16/20 at 1100, Until Tue06/16/20 at 1348, Pain, for MODERATE pain (4-6), Should be used concomitantly if other analgesics are ordered. Do not exceed 4,000 mg in 24 hours, Routine 1138 (Given - Provid er: Kenneth Lewis II, RN) acetaminophen (Tylenol) tablet 650 mg 650 mg, Oral, EVERY 4 HOURS PRN, Starting on Tue06/16/20 at 1100, Until Tue06/16/20 at 1348, Pain, for MILD pain (1-3), Do not exceed 4,000 mg in 24 hours, Routine balanced salt (BSS PLUS) irrigation solution (CANCELED) ONCE PRN, Starting on Tue06/16/20 at 1008, Until Tue06/16/20 at 1348, Intra-Operative (Intra-Procedure), Routine 1008 (Given - Provid er: Gabriel Anderson MD) balanced salt (BSS) irrigation solution (CANCELED) ONCE PRN, Starting on Tue06/16/20 at 1008, Until Tue06/16/20 at 1348, Intra-Operative (Intra-Procedure), Routine 1008 (Given - Provid er: Gabriel Anderson MD) BUpivacaine (PF) (MARCAINE) 0.75 % (7.5 mg/mL) injection (CANCELED) ONCE PRN, Starting on Tue06/16/20 at 1053, Until Tue06/16/20 at 1348, Intra-Operative (Intra-Procedure), Routine 1053 (Given - Provid er: Gabriel Anderson MD - Comment: peribulbar block) ceFAZolin (Ancef) injection (CANCELED) ONCE PRN, Starting on Tue06/16/20 at 1009, Until Tue06/16/20 at 1348, Intra-Operative (Intra-Procedure), Routine 1009 (Given - Provid er: Gabriel Anderson MD - Comment: post op subconjunctival injection) dexamethasone (Decadron) injection (CANCELED) ONCE PRN, Starting on Tue06/16/20 at 1010, Until Tue06/16/20 at 1348, Intra-Operative (Intra-Procedure), Routine 1010 (Given - Provid er: Gabriel Anderson MD - Comment: post op subconjunctival injection) indocyanine green (IC-GREEN) injection (CANCELED) ONCE PRN, Starting on Tue06/16/20 at 1010, Until Tue06/16/20 at 1348, Intra-Operative (Intra-Procedure), Routine 1010 (Given - Provid er: Gabriel Anderson MD - Comment: 25mg icg dye mixed with 0.5ml sterile water and 24.5ml D5W 0.1ml given) lidocaine (XYLOCAINE) 20 mg/mL (2 %) injection (CANCELED) ONCE PRN, Starting on Tue06/16/20 at 0953, Until Tue06/16/20 at 1348, Intra-Operative (Intra-Procedure), Routine 0953 (Given - Provid er: Gabriel Anderson MD - Comment: peribulbar block left eye) moxifloxacin (VIGAMOX) 0.5 % ophthalmic solution (CANCELED) ONCE PRN, Starting on Tue06/16/20 at 1012, Until Tue06/16/20 at 1348, Intra-Operative (Intra-Procedure), Routine 1012 (Given - Provid er: Gabriel Anderson MD - Comment: post op) povidone-iodine 5 % ophthalmic solution (CANCELED) ONCE PRN, Starting on Tue06/16/20 at 0957, Until Tue06/16/20 at 1348, Intra-Operative (Intra-Procedure), Routine 0957 (Given - Provid er: Gabriel Anderson MD - Comment: prep) Sodium Hyaluronate Syrg (CANCELED) ONCE PRN, Starting on Tue06/16/20 at 1012, Until Tue06/16/20 at 1348, Intra-Operative (Intra-Procedure) 1012 (Given - Provid er: Gabriel Anderson MD) tetracaine (PF) (PONTOCAINE) ophthalmic solution (CANCELED) ONCE PRN, Starting on Tue06/16/20 at 0955, Until Tue06/16/20 at 1348, Intra-Operative (Intra-Procedure), Routine 0955 (Given - Provid er: Gabriel Anderson MD - Comment: before prep) documented in this encounter Care Teams Client Care Coordinator Relationship Specialty Start Date End Date Kenneth Houser DO [address] [place] [address] PCP - General Family Medicine 04/14/17 documented as of this encounter
--- OUTSIDE RECORDS SUMMARY | 2024-12-06 00:44 | XMS_ITS | Encounter Summary ---
[place] [address] Care Team Providers Care Public Health Microbiologist Name Role Phone MikKenneth martin Primary Care Provider Reason for Visit * Reason Comments Epiretinal Membrane Encounter Details Date Type Department Care Team (Late st Contact Info) Description 05/13/2020 10:30 AM EDT Office [place] [address] Gabriel Anderson MD Epiretinal membrane (ERM) of left eye Social History Tobacco Use Types Packs/Day Years Used Date Smoking Tobacco: Never Smokeless Tobacco: Former Chew Alcohol Use Standard Drinks/Week Comments Not Currently 0 (1 standard drink = 0.6 oz pur e alcohol) Sex and Gender Information Value Date Recorded Sex Assigned at Not on file Gender Identity Not on file Sexual Orientation Not on file documented as of this encounter Progress Notes * Gabriel Anderson MD - 05/13/2020 10:30 AM EDT ASSESSMENT/PLAN: 1. Epiretinal membrane (ERM) of left eye Visual Acuity Visual Acuity (Snellen - Linear) Right Left Dist cc 20/25 -1 20/60 Dist ph cc 20/20 -1 NI Near cc 20/20-1 20/40-2 Correction: Glasses 1. Epiretinal membrane with VMT, left Eye -The VA and ERM are worse. Agreed to proceed with PPV OS under MAC AAO video shown/ASRS and DH fact sheet given The risk of eye surgery include, but are not limited to, need for additional surgery, cataract formation, retinal detachment, endophthalmitis, retinal artery occlusion, suprachoroidal hemorrhage, lens dislocation, double vision (due to anesthesia or the surgery) permanent loss of vision, loss of eye. The patient understands the risks, and any and all questions were answered to the patient's satisfaction. The patient agrees to proceed with surgery as planned. The risks of anesthesia (including ND, CVA, etc) will be discussed with the anesthesia team. 2. Cataracts, both eyes -Mild, monitor Follow up for surgery and HCK. I, Balaji Keys, have performed the documentation for this encounter in the presence of, and acting as a scribe for Gabriel Anderson MD. I performed the services which were documented by the scribe, and I agree with the accuracy of the documentation in this encounter. Gabriel Anderson MD, PhD Extended Ophthalmoscopy Indication: 1. Epiretinal membrane (ERM) of left eye Technique: A) Indirect ophthalmoscopy with scleral depression B) Slit lamp exam with 90D/78D lens Findings: Main Ophthalmology Exam External Exam Right Left External Normal Normal Slit Lamp Exam Right Left Lids/Lashes Normal Normal Conjunctiva/Sclera White and quiet White and quiet Cornea Clear Clear Anterior Chamber Deep and quiet Deep and quiet Iris Round and reactive Round and reactive Lens 1+ NS 1+ NS Fundus Exam Right Left Vitreous PVA asteroid Disc Normal vitreous adhesion C/D Ratio 0.2 0.3 Macula Normal worse ERM, VMT Vessels Normal venous pulsations Periphery reticular Normal documented in this encounter Plan of Treatment Not on file documented as of this encounter Procedures Procedure Name Priority Date/Time Associated Diagnosis Comments VITRECTOMY, W/ MEMBRANE STRIPPING Routine 05/13/2020 11:12 AM EDT Epiretinal membrane (ERM) of left eye OCT RETINA - OU - BOTH EYES Routine 05/13/2020 11:04 AM EDT Epiretinal membrane (ERM) of left eye documented in this encounter Results * OCT Retina - OU - Both Eyes (05/13/2020 11:04 AM EDT) Anatomical Region Laterality Modality Other Narrative 05/13/2020 11:04 AM EDT Right Eye Quality was good. Scan locations included subfoveal. Progression has been stable. Findings include normal observations, normal foveal contour. Left Eye Quality was good. Scan locations included subfoveal. Progression has worsened. Findings include abnormal foveal contour, macular pucker. Gabriel Anderson MD OPHTHALMOLOGY SERVICES ORDERABLES documented in this encounter Visit Diagnoses Diagnosis Epiretinal membrane (ERM) of left eye documented in this encounter Care Teams Public Health Microbiologist Relationship Specialty Start Date End Date Kenneth Houser DO [address] [place] [address] PCP - General Family Medicine 04/14/17 documented as of this encounter
--- OUTSIDE RECORDS SUMMARY | 2024-12-06 00:44 | XMS_ITS | Encounter Summary ---
[facility] Organization [facility] [place] [address] Care Team Providers Care E Commerce Strategist Name Role Phone Mik, Kenneth SMITH Primary Care Provider Reason for Visit * Reason Comments Post Op Encounter Details Date Type Department Care Team (Late st Contact Info) Description 06/17/2020 8:00 AM EDT Office [place] [address] Gabriel Anderson MD Epiretinal membrane (ERM) of [...] * Patient Instructions* Gabriel Anderson MD - 06/17/2020 8:00 AM EDT Images from the original note were not included. Drop Name: Cap Color: Dose: 1 Drop Eye: Prednisolone Acetate 1% [place] or White 4 times per day (shake bottle before using) Operated eye Vigamox (Moxifloxacin) Hernandez 4 times per day Operated eye Ointment Small tube As needed, up to 4 times daily (to relieve foreign body sensation and irritation caused by stitches) Operated eye Atropine Red none none Make sure you wait 3-5 minutes between each drop application. Please use the ointment at least 1 hour prior to and/or after the drops (applying the ointment right before the drops will not allow youreye to absorb the drops) Non operated eye: Please continue taking the same eye drops POSITIONING: Please keep a face down position for ~50mins/hour while awake. It's ok to take a ~10 minute break every hour. Please sleep on your side with the right or left cheek touching the pillow WARNING SYMPTOMS: - People frequently feel mild-moderate discomfort and foreign body sensation that improves within days. - Eyelid/eyeball swelling and redness are also common for a few weeks. - Small floaters or bubbles that come and go are not usually worrisome. However, if you experience vision loss, new strong pain, light sensitivity and/or tenderness please call the [facility] [employer] [place] ([phone]) PAIN: May use over the counter pain medications as needed (Tylenol 1000mg- up to 3 times daily) alternating with ibuprofen (600mg up to 3 times per day) EYE SHIELD: Keep eye shield on the eye overnight. If you catch yourself touching your eye during daytime pleaseuse eyeshield during daytime to protect your eye. OTHERS: Shower: It is ok to shower as long as you do not let fresh water touch the operated eye. Covering the eye with the eyeshield might help Make sure you wash your hands prior to touching your eye (i.e. Prior to applying your eyedrops). Donot rub or squeeze your eye. Avoid lifting heavy weights for 1 month (i.e. Not more than 5 lbs for 1 week and 20Lbs for 1 month) Avoid high impact activities (e.g. running, aerobic class, skiing) Avoid straining, retching, vomiting, coughing as much as possible FLIGHTS: Do NOT take any flights until you discuss it with your doctor. There's severe risk for the eye if you're in areas of high altitude (flight, very tall mountains etc) documented in this encounter Progress Notes * Gabriel Anderson MD - 06/17/2020 8:00 AM EDT ASSESSMENT/PLAN: Visual Acuity Visual Acuity (Dmitry Isolated) Right Left Dist cc 20/20 HM@face Tonometry Tonometry (Applanation, 8:08 AM) Right Left Pressure 14 18 Everett Johnson is here for POD#1 visit. The retina is attached, the IOP is normal. Post-op instructions reviewed. Instructions (operated eye only): Pred Forte QID Vigamox QID No atropine Follow up as scheduled next week for POW#1 visit I, Balaji Keys, have performed the documentation for this encounter in the presence of, and acting as a scribe for Gabriel Anderson MD. I performed the services which were documented by the scribe, and I agree with the accuracy of the documentation in this encounter. Gabriel Anderson MD, PhD documented in this encounter Plan of Treatment Not on file documented as of this encounter Visit Diagnoses Diagnosis Epiretinal membrane (ERM) of left eye s/p PPV-MP 06/16/20 documented in this encounter Care Teams E Commerce Strategist Relationship Specialty Start Date End Date Kenneth Houser DO [address] [place] [address] PCP - General Family Medicine 04/14/17 documented as of this encounter
--- OUTSIDE RECORDS SUMMARY | 2024-12-06 00:44 | XMS_ITS | Encounter Summary ---
Author Organization [facility] [place] [address] Care Team Providers Care Derrick Operator Name Role Phone Mik, Kenneth SMITH Primary Care Provider [phone] Reason for Visit * Reason Comments Follow-up Encounter Details Date Type Department Care Team (Late st Contact Info) Description 01/18/2018 9:00 AM EDT Office Visit Dermatology at [facility] [address] [place] [address] Aydin Jaramillo MD [address] [place] [address] Seborrheic dermatitis; Actinic keratosis Social History Tobacco Use Types Packs/Day Years Used Date Smoking Tobacco: Never Assessed Sex and Gender Information Value Date Recorded Sex Assigned at Not on file Gender Identity Not on file Sexual Orientation Not on file documented as of this encounter Progress Notes * Aydin Jaramillo MD - 01/18/2018 9:00 AM EDT Images from the original note were not included. DEPARTMENT DERMATOLOGY AT [facility] Dermatology [facility] [address] [facility] [id number] FOLLOW-UP Chief Complaint: actinic keratosis f/u - resolved Seborrheic dermatitis f/u improved History of Present Illness Everett Johnson is a 72 y.o. male History of Seborrheic dermatitis on face currently using Nizoral who reports improvement. Also history of actinic keratosis treated with LN2 on 11-22-17. He thinks they have healed over. Interval Changes in Medications and Medical, Surgical Family, and Social Histories Since Last [id number]: No significant and pertinent interval changes. Skin Cancer History No personal history of skin cancer Family history of skin cancer - Brother Allergies Review of patient's allergies indicates no known allergies. Medications has a current medication list which includes the following prescription(s): ketoconazole, flovent hfa, levalbuterol, aspirin, and hyzaar. Social History Tobacco use - former Alcohol use - none Review of Systems Significant for no pertinent and acute changes in constitutional, other skin, musculoskeletal systems upon specific queries. Examination Standby: Roberto Rdz Mood is appropriate and congruent with effect. Well developed, well-nourished in no apparent distress, alert and oriented to time, person, place and situation. Focused exam of the scalp and face significant for the following: ?? Scant greasy scale on the head ?? No AKs on the head Assessment and Plan Seborrheic Dermatitis Much improved with weekly Nizoral use. Continue Nizoral shampoo, rinse after 5-10 min, qd for flares or weekly for prevention. Cont nizoral shampoo or OTC antidandruff shampoo 1-2 x per week, and rinse after 5-10 min. Actinic Keratosis Resolved. Follow-up: Skin cancer screening in Oct 2018 or return to clinic prn for new suspicious lesions or if changes/symptoms in existing lesions develop. Note initiated by ERIN RODRIGUEZ has performed the documentation for this encounter in the presence of and acting as a scribe for Dr. Jaramillo. I performed the above scribed service and agree with the accuracy of the documentation in this encounter. Aydin Jaramillo MD FAAD Section of Dermatology [facility] documented in this encounter Plan of Treatment Not on file documented as of this encounter Visit Diagnoses Diagnosis Seborrheic dermatitis Seborrheic dermatitis, unspecified Actinic keratosis documented in this encounter Care Teams Derrick Operator Relationship Specialty Start Date End Date Kenneth Houser DO [address] [place] [address] PCP - General Family Medicine 04/14/17 documented as of this encounter
--- OUTSIDE RECORDS SUMMARY | 2024-12-06 00:44 | XMS_ITS | Encounter Summary ---
Author Organization [facility] [place] [address] Care Team Providers Care Machinist Wood Name Role Phone Kenneth Houser DO Primary Care Provider Encounter Details Date Type Department Care Team (Late st Contact Info) Description 01/30/2019 11:00 AM EDT Office Visit Dermatology at [facility] [address] [place] [address] Aydin Jaramillo MD [address] [facility] [address] Actinic keratoses (Primary Dx); Seborrheic dermatitis; Family history of skin cancer Social History Tobacco Use Types Packs/Day Years Used Date Smoking Tobacco: Never Assessed Sex and Gender Information Value Date Recorded Sex Assigned at Not on file Gender Identity Not on file Sexual Orientation Not on file documented as of this encounter Progress Notes * Aydin Jaramillo MD - 01/30/2019 11:00 AM EDT Images from the original note were not included. Dermatology [place], [place] FOLLOW-UP Chief Complaint: Skin exam History of Present Illness Everett Johnson is a 73 y.o. male Family history of skin cancer who presents with the following concerns: ?? No specific lesions that are concerning. No spots that are changing colors, itching, or bleeding. ?? History of seborrheic dermatitis on the scalp. Well-controlled with ketoconazole shampoo. Declines full body skin cancer screening. Interval changes to Medications and Medical, Family and Social Histories (including alcohol and tobacco use) Since Last Visit 01/18/18: No significant interval history. Skin Cancer History No personal history of skin cancer Family history of skin cancer - Brother Allergies Patient has no known allergies. Medications has a current medication list which includes the following prescription(s): ketoconazole, flovent hfa, levalbuterol, aspirin, and hyzaar. Social History Tobacco use - former Alcohol use - none Review of Systems Significant for no pertinent and acute changes in constitutional, other skin systems upon specific queries. Examination Standby: [place] Mood is appropriate. Well developed, well-nourished in no apparent distress, alert and oriented to time, person, place and situation. Focused skin examination of the head - including the scalp, face, ears, lips, tongue - neck significant for the following: ?? [place], hyperkeratotic slightly irregular papules on the left methodist x1, right methodist x1, dorsum nose x 1 ?? Starkweather scales on the occipital scalp Assessment and Plan Actinic Keratoses Counseled: AKs, risk for progression to SCCs, and treatment options, including observation, cryotherapy. Answered all questions. ?? Total 3 treated with cryotherapy, 1 cycle at 5-6 seconds for each, after verbally discussing thedisease and treatment options, cryotherapy method, expected results/course and potential adverse effects, including crusting, persistent erythema, scar, blister, pain, dyspigmentation, and recurrence. Patient verbally agreed. Patient tolerated well with no complications. Wound care instructions provided. If no resolution in 21d or if scaling recurs after initial resolution, may contact clinic forre-evaluation and management. Seborrheic Dermatitis Counseled: seborrheic dermatitis, chronic and recurrent course, etiologies and triggers, and treatment options for seborrheic dermatitis. Answered all questions. ?? Continue Rx nizoral shampoo 1-2 x per week, and rinse after 5-10 min. Patient Counseled [Skin Cancer] Counseled: provider skin exams every 12-24 months. Answered all questions. Patient elects to returnto clinic in 24 months. Follow-up: Skin cancer screening in January 2021 or return to clinic prn for new suspicious lesions or if changes/symptoms in existing lesions develop. Note initiated by Ghislaine Hairston CMA Gorge yolandeday has performed the documentation for this encounter in the presence of and acting as a scribe for Dr. Jaramillo. I performed the above scribed service and agree with the accuracy of the documentation in this encounter. Aydin Jaramillo MD FAAD Section of Dermatology [facility] documented in this encounter Plan of Treatment Not on file documented as of this encounter Visit Diagnoses Diagnosis Actinic keratoses- Primary Actinic keratosis Seborrheic dermatitis Seborrheic dermatitis, unspecified Family history of skin cancer Family history of other specified malignant neoplasm documented in this encounter Care Teams Machinist Wood Relationship Specialty Start Date End Date Kenneth Houser DO [address] [place] [address] PCP - General Family Medicine 04/14/17 documented as of this encounter
--- OUTSIDE RECORDS SUMMARY | 2024-12-06 00:44 | XMS_ITS | Encounter Summary ---
Author Organization [facility] [place] [address] Care Team Providers Care Reconciliation Accountant Name Role Phone MikKenneth martin Primary Care Provider Reason for Visit * Reason Comments Post Op Encounter Details Date Type Department Care Team (Late st Contact Info) Description 08/05/2020 12:00 PM EDT Office [place] [id number] Gabriel Anderson MD ERM OS- s/p PPV-MP 06/16/20 Social History Tobacco Use [...] Progress Notes * Gabriel Anderson MD - 08/05/2020 12:00 PM EDT ASSESSMENT/PLAN: 1. ERM OS- s/p PPV-MP 06/16/20 Visual Acuity Visual Acuity (Snellen - Linear) Right Left Dist cc 20/20 20/30 -2 Dist ph cc NI Near cc 20/30 20/25 Correction: Glasses Doing well. Discussed the slow visual recovery after this procedure The cataract is not yet ready for CE. Follow retina PRN Balaji Fry, have performed the documentation for this encounter [...] as of this encounter Visit Diagnoses Diagnosis ERM OS- s/p PPV-MP 06/16/20 documented in this encounter Care Teams Reconciliation Accountant Relationship Specialty Start Date End Date Kenneth Houser DO [address] [place] [address] PCP - General Family Medicine 04/14/17 documented as of this encounter
--- OUTSIDE RECORDS SUMMARY | 2024-12-06 00:44 | XMS_ITS | Encounter Summary ---
Author Organization [facility] [place] [address] Care Team Providers Care Musical Instrument Supervisor Name Role Phone Kenneth Houser DO Primary Care Provider Reason for Visit * Reason Comments Skin Lesion * Consultation (Routine) - Closed Specialty Diagnoses / Procedures Referred By Contac t Referred To Contact Dermatology Diagnoses Actinic keratoses Kenneth Houser DO [address] [place] [address] [facility] Dermatology [address] [place] [address] Referral ID Status Reason Start Date Expiration Date V isits Requested Visits Authorized [id number] Closed Consult, Test & Treat [facility] 04/14/2017 04/14/2018 1 1 Encounter Details Date Type Department Care Team (Late st Contact Info) Description 05/11/2017 3:45 PM EDT Office Visit Dermatology at [facility] [address] [place] [id number] Mark Anthony Moreno MD Actinic keratosis Social History Tobacco Use Types Packs/Day Years Used Date Smoking Tobacco: Never Assessed Sex and Gender Information Value Date Recorded Sex Assigned at Not on file Gender Identity Not on file Sexual Orientation Not on file documented as of this encounter Progress Notes * Addis Fonseca LPN - 05/11/2017 3:45 PM EDT DERMATOLOGY NEW PATIENT CLINIC NOTE Date of service: 05/11/2017 Name: Everett Johnson Age: 71 y.o. Sex: male : 1945 Provider: Mark Anthony Moreno MD New patient to myself and to clinic. Seen in consultation at the request of Kenneth Houser for evaluation and management of the below problem. HPI Everett Johnson is a 71 y.o. male, here today with multiple asymptomatic lesions on the scalp. He has had some AKs treated in the past with LN2 by his primary care provider. No personal or family history of dysplastic nevi or melanoma. No history of skin cancer. SKIN HX: AKs Blistering sunburns as a child FAMILY SKIN HISTORY: Brother - unknown skin cancer No family history of any skin conditions. SOCIAL HX; Retired - worked for [employer] ADR: No Known Allergies MEDS: ??? FLOVENT HFA 110 mcg/actuation HFA Aerosol Inhaler ??? levalbuterol (XOPENEX HFA) 45 mcg/actuation HFA Aerosol Inhaler ??? aspirin 81 mg Tablet, Delayed Release (E.C.) ??? losartan-hydrochlorothiazide (HYZAAR) 100-25 mg per tablet ROS General: feeling well Skin: denies other skin complaints EXAM General: NAD, pleasant, cooperative Skin: Patient was asked to disrobe to the level of their comfort. Examination of skin from the waist up was performed. This includes examination of the skin of the face, ears, neck, chest, axillae, left and right upper extremities, hands, back, and abdomen. Significant skin findings: A. Several early AKs across face and forehead as well as thicker AKs on the hands ASSESSMENT/PLAN: A. Actinic keratosis - Discussed etiology and treatment options including LN2, topical chemotherapy, PDT - Recommend field therapy in the winter with Efudex. Spot treat with LN2 outside of the efudex field. Patient agrees to plan. Procedure Note: Procedure: Destruction of lesions with cryotherapy. Number: 2 Location: left hand Discussed procedure and expectations including risks (including risk of hypopigmentation) and benefits. Verbal consent obtained. Frozen with LN2, 15-30 second thaw time. There were no complications; the patient tolerated the procedure well. Post-procedure expectations and wound care were reviewed. FOLLOW-UP: October 2017 for Efudex Note initiated by ERIN WEST LPN has performed the documentation for this encounter in the presence of and acting as a scribe for Dr. Moreno. I performed the above scribed service and agree with the accuracy ofthe documentation in this encounter. Mark Anthony Moreno MD Section of Dermatology [facility] documented in this encounter Plan of Treatment Not on file documented as of this encounter Visit Diagnoses Diagnosis Actinic keratosis documented in this encounter Care Teams Musical Instrument Supervisor Relationship Specialty Start Date End Date Kenneth Houser DO [address] [place] [address] PCP - General Family Medicine 04/14/17 documented as of this encounter
--- OUTSIDE RECORDS SUMMARY | 2024-12-06 00:44 | XMS_ITS | Encounter Summary ---
[place] [address] Care Team Providers Care Technology Strategist Name Role Phone Mik, Kenneth SMITH Primary Care Provider Reason for Visit * Auth/Cert Specialty Diagnoses / Procedures Referred By Isis au Referred To Contact Diagnoses epiretinal membrane, left eye Procedures PRO VITRECTOMY PARS PLANA REMOVE PRERETINAL MEMBRANE VITRECTOMY, W/ MEMBRANE STRIPPING (WRVU 16.33) Referral ID Status Reason Start Date Expiration Date Visits Re quested Visits Authorized [id number] 1 1 Encounter Details Date Type Department Care Team (Late st Contact Info) Description 06/16/2020 9:58 AM EDT - 06/16/2020 11:35 AM EDT Surgery [place] [address] Gabriel Anderson MD VITRECTOMY, W/ MEMBRANE STRIPPING (WRVU 16.33) Social History Tobacco Use Types Packs/Day Years [...] sensitivity and vision loss please call the [facility] telephone center ([phone]) immediately and speak to the taxonomy teacher hyperion analyst. PAIN May use over the counter pain [...] escorted out of department via wheelchair with SORTING MACHINE ATTENDANT. documented in this encounter H&P Notes * Gabriel Anderson MD - 06/16/2020 9:21 AM EDT Patient Name: Everett Johnson Patient Age: 75 y.o. Birthdate: 1945 Admit date: 06/16/2020 Attending Physician: Gabriel Anderson MD History and Physical Reviewed. No changes noted. The heart exam: RR, lung exam CTAB Ok to proceed with eye surgery as planned. Gabriel Anderson MD, PhD Used Equipment Sales Representative of Ophthalmology Diseases of the Retina and Vitreous documented in this encounter Nursing Notes * Matilde Ward, GERALD - 06/16/2020 10:46 AM EDT 20% SF6 gas left eye Card in black bag Gas bracelet applied to wrist documented in this encounter Miscellaneous Notes * Op Note - Gabriel Anderson MD - 06/16/2020 9:22 AM EDT [facility] Operative Note Patient Name: Everett Johnson : [id number] MR#: [id number] Case Date: 06/16/2020 Surgeon: Surgeon(s) and Role: [...] brought to the operative suite at the [facility] where a time-out was done to confirm [...] procedure without the involvement of a resident. Gabirel Anderson MD 06/17/2020 documented in this encounter Plan of Treatment Not on file documented as of this encounter Procedures Procedure Name Priority Date/Time Associated Diagnosis Comments Vitrectomy Pars Plana Remove Preretinal Membrane (99871) 06/16/2020 9:39 AM EDT Epiretinal membrane (ERM) of left eye documented in this encounter Visit Diagnoses Diagnosis Epiretinal membrane (ERM) of left eye documented in this encounter Administered Medications Inactive Administered [...] AM EDT 1 drop Le ft Eye balanced salt (BSS PLUS) irrigation solution ONCE PRN, Starting on Tue06/16/20 at 1008, Until Tue06/16/20 at 1348, Intra-Operative (Intra-Procedure), Routine Given 06/16/2020 10:08 AM EDT 1 Bottle 19- Surgical Site balanced salt (BSS) irrigation solution ONCE PRN, Starting on Tue06/16/20 at 1008, Until Tue06/16/20 at 1348, Intra-Operative (Intra-Procedure), Routine Given 06/16/2020 10:08 AM EDT 2 Bottles 19- Surgical Site BUpivacaine (PF) (MARCAINE) 0.75 % (7.5 mg/mL) injection ONCE PRN, Starting on Tue06/16/20 at 1053, Until Tue06/16/20 at 1348, Intra-Operative (Intra-Procedure), Routine Given 06/16/2020 10:53 AM EDT 2.5 mLs 19- Surgical Site ceFAZolin (Ancef) injection ONCE PRN, Starting on Tue06/16/20 at 1009, Until Tue06/16/20 at 1348, Intra-Operative (Intra-Procedure), Routine Given 06/16/2020 10:09 AM EDT 100 mg 19- Surgical Site dexamethasone (Decadron) injection ONCE PRN, Starting on Tue06/16/20 at 1010, Until Tue06/16/20 at 1348, Intra-Operative (Intra-Procedure), Routine Given 06/16/2020 10:10 AM EDT 2 mg 19- Surgical Site indocyanine green (IC-GREEN) injection ONCE PRN, Starting on Tue06/16/20 at 1010, Until Tue06/16/20 at 1348, Intra-Operative (Intra-Procedure), Routine Given 06/16/2020 10:10 AM EDT 0.1 mg 19- Surgical Site lactated ringers infusion 1,000 mL, at 100 mL/hr, Intravenous, CONTINUOUS, Starting on Tue06/16/20 at 0915, Until Tue06/16/20 at 1146, Day of Surgery (Day of Procedure) New Bag 06/16/2020 9:17 AM EDT 1,000 mLs 100 mL/hr lidocaine (XYLOCAINE) 20 mg/mL (2 %) injection ONCE PRN, Starting on Tue06/16/20 at 0953, Until Tue06/16/20 at 1348, Intra-Operative (Intra-Procedure), Routine Given 06/16/2020 9:53 AM EDT 2.5 mLs 20-Other (document in comment section) moxifloxacin (VIGAMOX) 0.5 % ophthalmic solution 1 drop 1 drop, Left Eye, EVERY 5 MIN, 3 doses, First dose on Tue06/16/20 at 0915, Last dose on Tue06/16/20 at 0925, Day of Surgery (Day of Procedure), Routine Given 06/16/2020 9:27 AM EDT 1 drop Given 06/16/2020 9:16 AM EDT 1 drop Given 06/16/2020 9:05 AM EDT 1 drop moxifloxacin (VIGAMOX) 0.5 % ophthalmic solution ONCE PRN, Starting on Tue06/16/20 at 1012, Until Tue06/16/20 at 1348, Intra-Operative (Intra-Procedure), Routine Given 06/16/2020 10:12 AM EDT 1 drop PHENYLephrine (MYDFRIN) 2.5 % ophthalmic solution 1 drop 1 drop, Left Eye, EVERY 5 MIN, 3 doses, First dose on Tue06/16/20 at 0915, Last dose on Tue06/16/20 at 0925, Day of Surgery (Day of Procedure), Routine Given 06/16/2020 9:27 AM EDT 1 drop Given 06/16/2020 9:16 AM EDT 1 drop Given 06/16/2020 9:05 AM EDT 1 drop povidone-iodine 5 % ophthalmic solution ONCE PRN, Starting on Tue06/16/20 at 0957, Until Tue06/16/20 at 1348, Intra-Operative (Intra-Procedure), Routine Given 06/16/2020 9:57 AM EDT 30 mLs prednisoLONE acetate (PRED FORTE) 1 % ophthalmic suspension 1 drop 1 drop, Left Eye, ONCE, 1 dose, On Tue06/16/20 at 0915, Day of Surgery (Day of Procedure), Routine Given 06/16/2020 9:05 AM EDT 1 drop Sodium Hyaluronate Syrg ONCE PRN, Starting on Tue06/16/20 at 1012, Until Tue06/16/20 at 1348, Intra-Operative (Intra-Procedure) Given 06/16/2020 10:12 AM EDT 1 each 19- Surgical Site tetracaine (PF) (PONTOCAINE) ophthalmic solution ONCE PRN, Starting on Tue06/16/20 at 0955, Until Tue06/16/20 at 1348, Intra-Operative (Intra-Procedure), Routine Given 06/16/2020 9:55 AM EDT 1 drop documented in this [...] Molina RN)0916 (Given - Provider: Shoshana Molina RN)0925 (Not Given - Provider: Shoshana Molina RN [...] RN)0916 (Given - Provider: Shoshana Molina RN)0920 (Not Given - Provider: Shoshana Molina RN [...] RN)0916 (Given - Provider: Shoshana Molina RN)09 (Due)09 (Given - Provider: Shoshana Molina RN) prednisoLONE acetate (PRED FORTE) 1 % ophthalmic suspension 1 drop (COMPLETED) 1 drop, Left Eye, ONCE, 1 dose, On Tue06/16/20 at 0915, Day of Surgery (Day of Procedure), Routine 904 (Given - Provid er: Shoshana Molina RN) Continuous Medication Order 06/14/2020 06/15/2020 06/16/2020 lactated ringers infusion (CANCELED) 1,000 mL, at 100 mL/hr, Intravenous, CONTINUOUS, Starting on Tue06/16/20 at 0915, Until Tue06/16/20 at 1146, Day of Surgery (Day of Procedure) 09 (New Bag - Prov ider: Shoshana Molina [...] prep) documented in this encounter Care Teams Technology Strategist Relationship Specialty Start Date End Date Kenneth Houser DO [address] [place] [address] PCP - General Family Medicine 04/14/17 documented as of this encounter
--- OUTSIDE RECORDS SUMMARY | 2024-12-06 00:44 | XMS_ITS | Encounter Summary ---
Author Organization [facility] [place] [address] Care Team Providers Care Photo Producer Name Role Phone MikKenneth martin Primary Care Provider [phone] Reason for Visit * Reason Comments Follow-up Encounter Details Date Type Department Care Team (Late st Contact Info) Description 11/22/2017 9:30 AM EST Office Visit Dermatology at [facility] [address] [place] [phone] Aydin Jaramillo MD [address] [facility] [place] [address] AK (actinic keratosis); Seborrheic dermatitis Social History Tobacco Use Types Packs/Day Years Used Date Smoking Tobacco: Never Assessed Sex and Gender Information Value Date Recorded Sex Assigned at Not on file Gender Identity Not on file Sexual Orientation Not on file documented as of this encounter Progress Notes * Aydin Jaramillo MD - 11/22/2017 9:30 AM EST Images from the original note were not included. DEPARTMENT DERMATOLOGY AT [facility] Dermatology At [facility] [address] [facility] [address] FOLLOW-UP Patient is established to this clinic, but new to me. Chief Complaint: Red rashes on the face. History of Present Illness Everett Johnson is a 72 y.o. male. History of red patches and scale on face for years. Notes moderate itching. Never been treated or biopsied. Also, history of AKs on the face and hands here to re-evaluate sites and discuss possible field therapy. No painful lesions. Previously treated with cryotherapy which he has tolerated well. Declines full body skin cancer screening. Interval changes to Medications and Medical, Family and Social Histories (including alcohol and tobacco use) Since Last Visit 05/11/2017: No significant interval history. Skin Cancer History No personal history of skin cancer Family history of skin cancer - Brother Allergies Review of patient's allergies indicates no known allergies. Medications ??? FLOVENT HFA 110 mcg/actuation HFA Aerosol Inhaler ??? levalbuterol (XOPENEX HFA) 45 mcg/actuation HFA Aerosol Inhaler ??? aspirin 81 mg Tablet, Delayed Release (E.C.) ??? losartan-hydrochlorothiazide (HYZAAR) 100-25 mg per tablet Social History Tobacco use - former Alcohol use - none Review of Systems Significant for no pertinent and acute changes in constitutional, other skin systems upon specific queries. Examination Standby: Keiry Chavez LPN Mood is appropriate. Well developed, well-nourished in no apparent distress, alert and oriented to time, person, place and situation. Skin Type: II. Focused exam of the head - including scalp, face, ears, lips - and hands significant for the following: ?? [place], hyperkeratotic slightly irregular papules on the left upper forehead x1, left zygoma x2, left lateral forehead x1, right malar cheek x1, right lateral forehead x3, dorsum nose x1 [Total AK: 9] ?? Bright pink patches with greasy scale on cheeks and chin, eyebrows and glabella Assessment and Plan Actinic Keratoses Counseled: AKs, risk for progression to SCCs, and treatment options, including observation, cryotherapy, topicals, and PDT. Answered all questions. Patient declines field therapy and elects cryotherapy. Total 9 treated with cryotherapy, 1 cycle at 5-6 seconds for each, after verbally discussing the disease and treatment options, cryotherapy method, expected results/course and potential adverse effects, including crusting, persistent erythema, scar, blister, pain, dyspigmentation, and recurrence. Mark jang verbally agreed. Patient tolerated well with no complications. Wound care instructions provided. If no resolution in 21d or if scaling recurs after initial resolution, may contact clinic for re-evaluation and management. Seborrheic Dermatitis Counseled: seborrheic dermatitis, chronic and recurrent course, etiologies and triggers, and treatment options for seborrheic dermatitis. Answered all questions. Handout on seborrheic dermatitis provided. Start nizoral shampoo, rinse after 5-10 min, qd for flares or weekly for prevention. Family History of Skin Cancer Brother- unknown type Follow-up: 6-8 weeks tore-evaluate seborrheic dermatitis and AK or return to clinic prn for new suspicious lesions or if changes/symptoms in existing lesions develop. Note initiated by ERIN ALVARADO LPN has performed the documentation for this encounter in the presence of and actingas a scribe for Dr. Jaramillo. I performed the above scribed service and agree with the accuracy of thedocumentation in this encounter. Aydin Jaramillo MD FAAD Section of Dermatology [facility] documented in this encounter Plan of Treatment Not on file documented as of this encounter Visit Diagnoses Diagnosis AK (actinic keratosis) Actinic keratosis Seborrheic dermatitis Seborrheic dermatitis, unspecified documented in this encounter Care Teams Photo Producer Relationship Specialty Start Date End Date Kenneth Houser DO [address] [place] [address] PCP - General Family Medicine 04/14/17 documented as of this encounter
--- OUTSIDE RECORDS SUMMARY | 2024-12-06 00:44 | XMS_ITS | Clinical Summary ---
Author Organization [facility] Address [facility] [place] [address] Care Team Providers Care Advanced Practice Nurse Name Role Phone MikKenneth Primary Care Provider Allergies No known active allergies Medications Medication Sig Dispensed Refills Start Date End Date Status losartan-hydrochlorot hiazide (HYZAAR) 100-25 mg per tablet 12/21/2006 Acti ve FLOVENT HFA 110 mcg/actuation HFA Aerosol Inhaler 04/27/2017 Active levalbuterol (XOPENEX HFA) 45 mcg/actuation HFA Aerosol Inhaler 04/27/2017 Activ e aspirin 81 mg Tablet, Delayed Release (E.C.) Take 81 mg by mouth daily. Active ketoconazole (NIZORAL) 2 % ShampooIndications:Se borrheic dermatitis Apply to affected area on the face daily as needed, wash off after 5-10 minutes 120 mL 3 11/22/2017 Active prednisoLONE acetate (PRED FORTE) 1 % Drops, Suspension Place 1 drop into the left eye daily. Active Active Problems No known active problems Family History Medical History Relation Comments Diabetes Brother 1 Hypertension Brother 1 Hypertension Brother 2 Cancer Brother 3 Cancer Father Hypertension Father Heart Disease Maternal Grandfather Diabetes Mother Heart Disease Mother Amblyopia Neg Hx Cataracts Neg Hx Glaucoma Neg Hx Macular Degeneration Neg Hx Retinal Detachment Neg Hx Strabismus Neg Hx Thyroid Disease Neg Hx Relation Status Comments Brother 1 Alive Brother 2 Alive Brother 3 Alive Father Maternal Grandfather Mother Social History Tobacco Use Types Packs/Day Years Used Date Smoking Tobacco: Never Smokeless Tobacco: Former Chew Alcohol Use Standard Drinks/Week Comments Not Currently 0 (1 standard drink = 0.6 oz pur e alcohol) Sex and Gender Information Value Date Recorded Sex Assigned at Not on file Gender Identity Not on file Sexual Orientation Not on file Last Filed Vital Signs Vital Sign Reading [...] Mass Index 25.54 06/16/2020 8:52 AM EDT Plan of Treatment Health Maintenance Due Date Last Done Comments Hepatitis C Screening 1963 Tetanus/Diphtheria/Pertussis Vaccines (1 - Tdap) 06/09 Pneumoccocal Vaccine: 50+ (1 of 1 - PCV) 1997 Zoster vaccine (1 of 2) 1997 Advance Directive 2002 RSV Vaccine (1 - 1-dose 75+ series) 2022 Covid-19 Vaccine (1 - 2023- season) 2024 Influenza (Flu) vaccine (1 o f 1 - Influenza standard series) 07/01/2024 Care Teams Advanced Practice Nurse Relationship Specialty Start Date End Date Kenneth Houser DO [address] [place] [address] PCP - General Family Medicine 04/14/17
--- OUTSIDE RECORDS SUMMARY | 2024-12-06 00:44 | XMS_ITS | Encounter Summary ---
Author Organization [facility] Address [facility] [place] [address] Care Team Providers Care Regional Service Manager Name Role Phone Kenneth Houser DO Primary Care Provider Reason for Visit * Reason Comments Blurred Vision * Consultation (Urgent) - Closed Specialty Diagnoses / Procedures Referred By Contzeinab t Referred To Contact Ophthalmology Diagnoses subretinal fluid os Huseyin Hartley, OD [address] [place] [address] [place] [id number] Gabriel Anderson MD [facility] [place] [address] Referral ID Status Reason Start Date Expiration Date V isits Requested Visits Authorized [id number] Closed Consult, Test & Treat 12/03/2019 12/02/2020 1 1 Encounter Details Date Type Department Care Team (Late st Contact Info) Description 12/13/2019 1:00 PM EST Office Visit Ophthalmology at [facility] [place] [address] Gabriel Anderson MD Epiretinal membrane (ERM) of [...] Progress Notes * Gabriel Anderson MD - 12/13/2019 1:00 PM EST ASSESSMENT/PLAN: 1. Epiretinal membrane (ERM) of left eye Visual Acuity Visual Acuity (Snellen - Linear) Right Left Dist cc 20/25 -2 20/25 -2 Dist ph cc 20/20 -2 NI Near cc 20/20 20/20-2 Correction: Glasses 1. Epiretinal membrane with VMT, left eye Dr. Hartley thank you for the kind referral. Today's fundoscopic exam and multimodal imaging shows epiretinal membrane in the left eye. Discussed the treatment options that include 1) observation and 2) PPV-MP. Emphasized that the primary goal of the surgery is to decrease the metamorphopsia while the visual acuity also improves by afew lines. ASRS fact sheet given Given the relatively good vision and the mild symptoms, we agreed to monitor conservatively at thispoint, given that the risks of the procedure outweigh the benefits. Amsler grid was given, and recommended regular use in order to monitor the progression of the ERM. 2. Cataracts, both eyes Mild, monitor Follow up 4-6 weeks for DFE, OCT OU I, Tereso Calderon, have performed the documentation for this encounter [...] adhesion C/D Ratio 0.2 0.3 Macula Normal ERM, VMT Vessels Normal venous pulsations Periphery reticular Normal documented in this encounter Plan of Treatment Not on file documented as of this encounter Procedures Procedure Name Priority Date/Time Associated Diagnosis Comments FUNDUS PHOTOS - OU- BOTH EYES Routine 12/13/2019 2:46 PM EST Epiretinal membrane (ERM) of left eye FLUORESCEIN ANGIOGRAPHY - OU - BOTH EYES Routine 12/13/2019 2:45 PM EST Epiretinal membrane (ERM) of left eye OCT RETINA - OU - BOTH EYES Routine 12/13/2019 2:44 PM EST Epiretinal membrane (ERM) of left eye documented in this encounter Results * Fundus Photos - OU - Both Eyes (12/13/2019 2:46 PM EST) Anatomical Region Laterality Modality Other Narrative 12/13/2019 2:46 PM EST Right Eye Disc findings include normal observations. Macula findings include normal observations. Vessel findings include normal observations. Periphery findings include normal observations. Left Eye Disc findings include normal observations. Macula findings include retinal pigment epithelium abnormalities. Vessel findings include normal observations. Periphery findings include normal observations. Notes ERM and ?NVD OS Gabriel Anderson MD OPHTHALMOLOGY SERVICES ORDERABLES * Fluorescein Angiography - OU - Both Eyes (12/13/2019 2:45 PM EST) Anatomical Region Laterality Modality Other Narrative 12/13/2019 2:45 PM EST Right Eye Early phase findings include normal observations. Mid/Late phase findings include normal observations. Choroidal neovascularization is not present. Left Eye Early phase findings include normal observations. Mid/Late phase findings include leakage, neovascularization disc. Choroidal neovascularization is not present. Notes Gabriel Anderson MD OPHTHALMOLOGY SERVICES ORDERABLES * OCT Retina - OU - Both Eyes (12/13/2019 2:44 PM EST) Anatomical Region Laterality Modality Other Narrative 12/13/2019 2:44 PM EST Right Eye Quality was good. Scan locations included subfoveal. Progression has no prior data. Findings include normal observations, normal foveal contour. Left Eye Quality was good. Scan locations included subfoveal. Progression has no prior data. Findings include abnormal foveal contour, macular pucker. Gabriel Anderson MD OPHTHALMOLOGY SERVICES ORDERABLES documented in this encounter Visit Diagnoses Diagnosis Epiretinal membrane (ERM) of left eye documented in this encounter Care Teams Regional Service Manager Relationship Specialty Start Date End Date Kenneth Houser DO [address] [place] [address] PCP - General Family Medicine 04/14/17 documented as of this encounter
--- OUTSIDE RECORDS SUMMARY | 2024-12-06 00:44 | XMS_ITS | Encounter Summary ---
[place] [address] Care Team Providers Care Washer Engineer Name Role Phone Kenneth Houser DO Primary Care Provider Reason for Visit * Reason Onset Date Comments Appointment 05/13/2020 Surgical Schedul ing Encounter Details Date Type Department Care Team (Late st Contact Info) Description 05/13/2020 Telephone [place] [phone] Gabriel Anderson MD Appointment (Surgical Scheduling) Social History Tobacco Use Types Packs/Day Years Used Date Smoking Tobacco: Never Smokeless Tobacco: Former Chew Alcohol Use Standard Drinks/Week Comments Not Currently 0 (1 standard drink = 0.6 oz pur e alcohol) Sex and Gender Information Value Date Recorded Sex Assigned at Not on file Gender Identity Not on file Sexual Orientation Not on file documented as of this encounter Miscellaneous Notes * Telephone Encounter - Brittanie Gomez - 05/13/2020 3:22 PM EDT LM for patient to call back to schedule surgery documented in this encounter Plan of Treatment Not on file documented as of this encounter Visit Diagnoses Not on filedocumented in this encounter Care Teams Washer Engineer Relationship Specialty Start Date End Date Kenneth Houser DO [address] [place] [address] PCP - General Family Medicine 04/14/17 documented as of this encounter
--- OUTSIDE RECORDS SUMMARY | 2024-12-06 00:44 | XMS_ITS | Encounter Summary ---
[place] [address] Care Team Providers Care Drawing In Machine Tender Helper Name Role Phone MikKenneth martin Primary Care Provider [phone] Reason for Visit * Auth/Cert Specialty Diagnoses / Procedures Referred By Isis au Referred To Contact Diagnoses epiretinal membrane, left eye Procedures PRO VITRECTOMY PARS PLANA REMOVE PRERETINAL MEMBRANE VITRECTOMY, W/ MEMBRANE STRIPPING (WRVU 16.33) Referral ID Status Reason Start Date Expiration Date Visits Re quested Visits Authorized [id number] 1 1 Encounter Details Date Type Department Care Team (Late st Contact Info) Description 06/16/2020 9:37 AM EDT Anesthesia Event [place] [address] Elsa Romero MD Anesthesia Record Procedure Summary Procedure Name Responsible Anesthesiologist Anesthesia Start Time Anesthesia Stop Time VITRECTOMY, W/ MEMBRANE STRIPPING (WRVU 16.33) (Left: Eye) Elsa Romero MD 06/16/20 0937 06/16/20 1053 Events Date Time Event Comment 06/16/2020 0853 0937 Start 0940 AN Verify 0940 An Start Data 0945 Anesthesia Ready 0950 Quick Note RB Block by destiny geon [id number] Procedure Start 1053 an stop data 1053 Recovery or ICU Handoff Taibtha ent care was transferred to the destination unit staff after review of the patient's medical history, current anesthetic/surgical status and plan, according to the Provider Handoff Checklist. 1053 Stop Meds Name Total Midazolam 2 mg fentaNYL 75 mcg Propofol 40 mg lactated ringers infusion 500 mL * Agents Name O2 Air N2O O2 Auxiliary Flowmeter 1 * Blood No blood administrations on file. Lines, Drains, and Airways Type Details Placement Removal (RETIRED) Peripheral IV Line - Single Lumen 06/16/20; 0917; metacarpal vein (top of hand), right; [id number] catheter system; 20 gauge; Jesse RN; distraction, intradermal injection, tolerated well; 0; 06/16/20; 1146 06/16/20 0917 by Shoshana Molina RN 06/16/20 1146 by Meghann Tran RN Incision 06/16/20; 1000; eye; dressing: eye pad, eye shield, paper tape; 06/28/22 (LDA cleanup utility RA#[id number]); 1715 (LDA cleanup utility RA#[id number]) 06/16/20 1000 by Matilde Ward RN 06/28/22 1715 by Josef Lovell documented in this encounter Social History Tobacco Use Types Packs/Day Years Used Date Smoking Tobacco: Never Smokeless Tobacco: Former Chew Alcohol Use Standard Drinks/Week Comments Not Currently 0 (1 standard drink = 0.6 oz pur e alcohol) Sex and Gender Information Value Date Recorded Sex Assigned at Not on file Gender Identity Not on file Sexual Orientation Not on file documented as of this encounter OR Notes * Anesthesia Postprocedure Evaluation - Elsa Romero MD - 06/16/2020 1:09 PM EDT Department of Anesthesiology Post-procedure Note Patient: Everett Johnson Procedure Summary Date: 06/16/20 Room / Location: [facility] OR [address] [place] [address] MAIN OR Anesthesia Start: 936 Anesthesia Stop: 3 Procedure: VITRECTOMY, W/ MEMBRANE STRIPPING (WRVU 16.33) (Left Eye) Diagnosis: Epiretinal membrane (ERM) of left eye (epiretinal membrane, left eye) Surgeon: Gabriel Anderson MD Responsible Provider: Elsa Romero MD Anesthesia Type: MAC ASA Status: 2 All Anesthesia Providers: Anesthesiologist: Elsa Romero MD FRUIT GROWER: Isabella Valdovinos CRNA Vitals Value Taken Time BP 126/60 06/16/20 1130 Temp 36.5 ??C (97.7 ??F) 06/16/20 1058 Pulse Resp 16 06/16/20 1130 SpO2 96 % 06/16/20 1132 Pain Level 0 06/16/20 1138 Vitals shown include unvalidated device data. Patient Location: PACU/[facility] Level of Consciousness: Awake and Alert Pain Management: Satisfactory Analgesia PONV: None Cardiovascular Status: At Baseline and Hemodynamically Stable Respiratory Status: At Baseline and Room Air Postoperative Fluid Status: Intravascular EUvolemia Possible Anesthetic Complications: NONE apparent at time of evaluation Final Primary Anesthesia Type: MAC (The anesthetic type performed was the same as planned.) Comments: ELSA ROMERO MD * Anesthesia Preprocedure Evaluation - Elsa Romero MD - 06/16/2020 8:52 AM EDT Pre-Anesthesia Evaluation for: Everett Johnson a 75 y.o. male. Procedure(s): VITRECTOMY, W/ MEMBRANE STRIPPING (WRVU 16.33) There are no active problems to display for this patient. Past Medical History: Diagnosis Date ??? Allergy ??? Asthma ??? Cataract ??? Chronic kidney disease 1956 Left kidney removed ??? GERD (gastroesophageal reflux disease) ??? Hypertension ??? Skin disease ezxema No past surgical history on file. Social History Tobacco Use ??? Smoking status: Never Smoker ??? Smokeless tobacco: Former User Types: Chew Substance Use Topics ??? Alcohol use: Not Currently Social History Substance and Sexual Activity Drug Use Not on file No Known Allergies Medications: MAR and/or home medications have been reviewed. Physical Exam: No data found. There is no height or weight on file to calculate BMI. Airway Assessment: Mallampati: II TM distance: >3 FB Neck ROM: full Cardiovascular Assessment: cardiovascular exam normal Pulmonary Assessment: pulmonary exam normal Dental Assessment: Misc Assessment: IV access: Peripheral line Anesthesia Plan: ASA 2 MAC, with a(n) intravenous induction NPO MAC. GA b/u Region - Other Informed Consent: Anesthetic plan and risks discussed with patient. Plan discussed with FRUIT GROWER. PAT Clinic Note documented in this encounter Plan of Treatment Not on file documented as of this encounter Visit Diagnoses Not on filedocumented in this encounter Administered Medications Inactive Administered Medications - up to 3 most recent administrations Medication Order MAR Action Action Date Dose Rate Site fentaNYL 50 mcg/mL multi-dose injection PRN, Starting on Tue06/16/20 at 0937, Until Tue06/16/20 at 1053, Anesthesia Intra-op, Routine Given 06/16/2020 10:03 AM EDT 25 mcg Given 06/16/2020 9:43 AM EDT 25 mcg Given 06/16/2020 9:37 AM EDT 25 mcg midazolam (PF) (VERSED) multi-dose injection PRN, Starting on Tue06/16/20 at 0937, Until Tue06/16/20 at 1053, Anesthesia Intra-op, Routine Given 06/16/2020 10:03 AM EDT 0.5 mg Given 06/16/2020 9:43 AM EDT 0.5 mg Given 06/16/2020 9:37 AM EDT 1 mg propofol (DIPRIVAN) 10 mg/mL bolus injection (Anesthesia) PRN, Starting on Tue06/16/20 at 0947, Until Tue06/16/20 at 1053, Anesthesia Intra-op Given 06/16/2020 9:47 AM EDT 40 mg documented in this encounter Care Teams Drawing In Machine Tender Helper Relationship Specialty Start Date End Date Kenneth Houser DO [address] [place] [address] PCP - General Family Medicine 04/14/17 documented as of this encounter
[2024-12-06 01:10] LABS: HCT 45.9 % (40.0-50.0); HGB 15.4 g/dL (13.5-17.5); MCH 30.8 pg (27.0-33.0); MCHC 33.6 % (32.0-36.0); MCV 92 fL (80-95); MPV 9.6 fL (8.0-11.0); Platelet Count 182 10^3/uL (130-400); RDW 11.9 % (11.8-14.1); RDW-SD 40.4 fL
--- NOTE | 2024-12-06 01:23 | DI.RAD_ITS ---
Exam(s) XR CHEST 2V PA LATERAL EXAM: XR CHEST 2V PA LATERAL CLINICAL HISTORY: SOB TECHNIQUE: 2D digital imaging was performed. Two views. COMPARISON: No exams were available for comparison FINDINGS: HEART: Normal size. Aorta: Not dilated. PULMONARY VASCULATURE: Normal. MEDIASTINUM: Unremarkable. LUNGS: Clear. PLEURAL SPACE: No pleural effusion or pneumothorax. BONE:Unremarkable for age. SOFT TISSUES: Unremarkable. IMPRESSION: No acute abnormality. DATA REPOSITORY: RADIATION DOSE DELIVERED:
[2024-12-06 01:32] LABS: ALT 26 U/L (16-63); AST 16 U/L (15-37); Albumin 3.9 g/dL (3.4-5.0); Alkaline Phosphatase 81 U/L (46-116); Anion Gap 5.9 mmol/L (3-11); BUN 14 mg/dL (7-18); CO2 31.1 mmol/L (21.0-32.0); CREATININE 1.3 mg/dL (0.70-1.30); Calcium 9.2 mg/dL (8.5-10.1); Chloride 106 mmol/L (98-107); Estimated GFR 56.58 (mL/min/1.73m2); Glucose 111 mg/dL (74-106); Magnesium 1.7 mg/dL (1.8-2.4); Potassium 4.4 mmol/L (3.5-5.1); Sodium 143 mmol/L (136-145); Total Protein 7.4 g/dL (6.4-8.2); Troponin I 13 ng/L (<or=76)
--- NOTE | 2024-12-06 01:48 | DI.VRAD_ITS ---
PROCEDURE INFORMATION: Exam: XR Chest Exam date and time: 12/06/2024 1:16 AM Age: 79 years old Clinical indication: Shortness of breath; SOB TECHNIQUE: Imaging protocol: Radiologic exam of the chest. Views: 2 views. COMPARISON: No relevant prior studies available. FINDINGS: Lungs: No focal consolidation seen. Pleural spaces: No large pleural effusion seen. Heart/Mediastinum: No cardiomegaly. Bones/joints: No acute abnormality. IMPRESSION: No acute findings to explain reported symptoms. Dictated and Authenticated by: Sravani Pratt MD. Orderin Clay Aguilera MD
[2024-12-06 02:56] LABS: Troponin I 12 ng/L (<or=76)
== END 2024-12-06 03:16 | disposition home or self-care (01) ==
PROVIDERS: Emergency Provider Emergency Medicine; PCP Nurse Practitioner Family
DX: R11.0 Nausea (principal); I12.9 Hypertensive chronic kidney disease with stage 1 through stage 4 chronic kidney disease, or unspecified chronic kidney disease; N18.30 Chronic kidney disease, stage 3 unspecified; R00.1 Bradycardia, unspecified; J45.909 Unspecified asthma, uncomplicated; Z90.5 Acquired absence of kidney
CPT/HCPCS: 36415; 80053; 85027; 93005; 99285; 71046; 83735; 84484; 93010; 99284

== ENCOUNTER 2025-01-10 02:23 | Outpatient (CLI) | payer MEDICARE, BC, SELFPAY ==
[2025-01-10 12:40] LABS: Calculated LDL 139 mg/dL (<100); Cholesterol 211 mg/dL (<200); HDL Cholesterol 42 mg/dL (>or=40); Triglyceride 153 mg/dL (<150)
== END 2025-01-10 02:24 | disposition home or self-care (01) ==
PROVIDERS: PCP Nurse Practitioner Family; Visit Provider Nurse Practitioner Family
DX: Z13.6 Encounter for screening for cardiovascular disorders (principal)
CPT/HCPCS: 36415; 80061

== ENCOUNTER → 2025-03-05 10:04 | Outpatient (BNVA) | payer MEDICARE, BC, SELFPAY | PROVIDERS: PCP Nurse Practitioner Family; Referring Provider Nurse Practitioner Family; Visit Provider Physician Assistant Surgical | DX: J01.90 Acute sinusitis, unspecified (principal); J45.909 Unspecified asthma, uncomplicated | CPT/HCPCS: 36415; 99214 ==

== ENCOUNTER 2025-03-05 19:47 | Outpatient (REF) | payer MEDICARE, BC, SELFPAY ==
[2025-03-05 12:42] LABS: Abs Immature Grans 0.02 10^3/uL (0.0-0.06); Absolute Basophil Count 0.06 10^3/uL (0.0-0.2); Absolute Eosinophil Count 0.22 10^3/uL (0.0-0.7); Absolute Lymphocyte Count 1.39 10^3/uL (1.2-3.4); Absolute Monocyte Count 0.62 10^3/uL (0.1-0.8); Absolute Neutrophil Count 4.61 10^3/uL (1.2-6.7); Basophils % 0.9 %; Eosinophils % 3.2 %; HCT 43.2 % (40.0-50.0); HGB 14.9 g/dL (13.5-17.5); Immature Grans % 0.3 %; Lymphocytes % 20.1 %; MCH 31.4 pg (27.0-33.0); MCHC 34.5 % (32.0-36.0); MCV 91 fL (80-95); MPV 9.8 fL (8.0-11.0); Neutrophils % 66.5 %; Platelet Count 223 10^3/uL (130-400); RBC 4.74 10^6/uL (4.36-5.78); RDW 12.3 % (11.8-14.1); RDW-SD 40.9 fL; WBC 6.92 10^3/uL (4.4-10.8)
[2025-03-06 12:56] LABS: IgE 94 IU/mL (<158)
== END 2025-03-05 19:48 | disposition home or self-care (01) ==
LOC: LBN 19:47
PROVIDERS: PCP Nurse Practitioner Family; Visit Provider Physician Assistant Surgical
DX: J45.20 Mild intermittent asthma, uncomplicated (principal)
CPT/HCPCS: 82785; 85025

== ENCOUNTER 2025-07-12 03:50 | Outpatient (CLI) | payer MEDICARE, BC, SELFPAY ==
--- NOTE | 2025-07-12 06:15 | DI.CT_ITS ---
Exam(s) CT NECK W EXAM: CT NECK W CLINICAL HISTORY: Paralyzed left vocal cord,hoarseness of voice,r49.0. TECHNIQUE: Imaging Protocol: Axial computed tomography images with coronal and sagittal reformatted images were created and reviewed CONTRAST MATERIAL: Intravenous: Omnipaque 350 Contrast volume:60 ml contrast COMPARISON: CR,XR XR CHEST 2V PA LATERAL from 12/06/2024 FINDINGS: Parotids: Normal. Submandibular glands: Normal. Thyroid gland: Normal. Lymph nodes: There are scattered lymph nodes seen along the level one to level three all measuring less than 8 mm in short axis diameter which are physiologic in nature. Carotids arteries: Mild calcific plaque at the bulbs. No significant stenosis or dissection. Vertebral arteries: Patent. Soft tissues: The floor the mouth is unremarkable. The tonsils and adenoids are unremarkable. There is some streak artifact and mild motion at the level of the vocal cords. There is asymmetry at the vocal cords. The left vocal cord is deviated more toward the midline than the right. No visible mass. The epiglottis is within normal limits. Lungs: Images through both lung apices are unremarkable. Bones: Degenerative changes of the cervical spine, at C5-6 and C6-7.. Visualized portions of the brain and orbits: Unremarkable. Sinuses and mastoids: Clear. IMPRESSION: Asymmetry of the vocal cords. No evidence of mass or adenopathy in the neck or upper chest.. RADIATION DOSE DELIVERED: Total DLP DATA REPOSITORY: All CT scans at this facility are submitted to the National Radiology Data Registry (NRDR) Dose Index Registry (DIR) with the [employer] (A[employer]). RADIATION OPTIMIZATION: All CT scans at this facility use at least one of these dose optimization techniques: automated exposure control; mA and/or kV adjustment per patient size (includes targeted exams where dose is matched to clinical indication); or iterative reconstruction.
[2025-07-12 12:57] LABS: Estimated GFR 47.36 (mL/min/1.73m2)
[2025-07-12] MEDS: Omnipaque 350 MG/ML 100 ML BTL IJ (13:30)
[2025-07-12] MEDS: Normal Saline Flush 10 ML SYR IVP (13:31)
== END 2025-07-12 04:10 ==
PROVIDERS: PCP Nurse Practitioner Family; Visit Provider Registered Nurse Maternal Newborn
DX: R49.0 Dysphonia (principal); J38.01 Paralysis of vocal cords and larynx, unilateral
CPT/HCPCS: 70491; 82565; J3490

== ENCOUNTER → 2025-09-05 09:01 | Outpatient (BNVA) | payer MEDICARE, BC, SELFPAY | PROVIDERS: PCP Nurse Practitioner Family; Referring Provider Nurse Practitioner Family; Visit Provider Physician Assistant Surgical | DX: J01.90 Acute sinusitis, unspecified (principal); J38.01 Paralysis of vocal cords and larynx, unilateral; Z23 Encounter for immunization; Z87.891 Personal history of nicotine dependence | CPT/HCPCS: 90471; 90653; 99214 ==